=== PATIENT | female | born 1975 | race Caucasian/White ===

== ENCOUNTER 2018-05-14 13:47 | Inpatient (IN) | payer OTHER ==
[2018-05-14] MEDS ORDERED: SODIUM CHLORIDE 1,000 ML IV STA (14:01)
--- NOTE | 2018-05-14 14:01 | PDOC ---
Rapid Medical Evaluation Time Seen by Provider: 05/14/18 13:55 Medical Evaluation: Allergies Allergy/AdvReac Type Severity Reaction Status Date / Time Fish Containing Products Allergy Verified 10/28/17 15:35 Penicillins Allergy Verified 10/28/17 12:27 05/14/18 13:55 I have performed a brief in-person evaluation of this patient. The patient presents with a chief complaint of: periumbilical pain x 1 day. Now with palpitations. Wesley Bales Pertinent physical exam findings: +BS. mid abdominal tenderness. I have ordered the following: labs, urine, ekg The patient will proceed to the ED for further evaluation. Discharge Disposition - Diagnosis Abdominal pain, Palpitations - Referrals - Patient Instructions - Post Discharge Activity
[2018-05-14 14:59] LABS: BASO % 0.8 % (0-2.0); EOS % 0.1 % (0-4.5); HEMATOCRIT 36.6 % (32.4-45.2); HEMOGLOBIN 12.2 GM/dL (10.7-15.3); LYMPH % 13.5 % (8-40); MCH 30.8 pg (25.7-33.7); MCHC 33.4 g/dl (32.0-36.0); MEAN CELL VOLUME 92.1 fl (80-96); MEAN PLT VOLUME 8.4 fl (7.5-11.1); NEUT % 74.6 % (42.8-82.8); PLATELET COUNT 388 K/MM3 (134-434); RBC 3.98 M/mm3 (3.60-5.2); RDW 15.8 % (11.6-15.6); WHITE BLOOD COUNT 19.6 K/mm3 (4.0-10.0)
--- NOTE | 2018-05-14 15:26 | PDOC ---
History of Present Illness - General Chief Complaint: Palpitations Stated Complaint: PALPATION Time Seen by Provider: 05/14/18 13:55 - History of Present Illness Initial Comments: 05/14/18 15:22 43 yo F w with tachycardia, IDDM, diabetic coma, who p/w N/V, epigastria abdominal pain. Patient arrives from outside GI ( Dr. Chester Workman) for abdominal pain, tachycardia HR ~130's. Pt. has been experieincing multiple episodes of NBND emesis, and 3 loose watery stools x 24 hours. Also endorses worsening, crampy, epigastric abdominal pain, with no identifiable triggers or alleviators. Reports acute on chronic abdominal pain. H/o nml endosocpy and colonoscopy Dr. Maikel WOOD x 1 year ago. Denies chronic NSAID use. Reports ongoing history of unspecified tachycardia, with negative/unremarkable eval (2017) Stress test, LVEF 65%. Patient adherene t o Insulin regimen 6 U TID, and Levemir nightly. H/o diabetic coma, ( x 10 days) and ICU stay in [place] (2017- 03/30/2018). Patient denies MTZ, vision change, palpitations, cough, wheezing, orthopena, PND , leg swelling/pain, F,C, CP, SOB, urinary complaints, hematuria, BPR, constipation, lightheadedness, weakness, sensory changes. PMHx: as noted above. Denies h/o ACS/WA, PE/DVT. ROS: as noted SHx: Denies Allergies: PCN Past History - Past Medical History Allergies/Adverse Reactions: Allergies Allergy/AdvReac Type Severity Reaction Status Date / Time Fish Containing Products Allergy Verified 10/28/17 15:35 Penicillins Allergy Verified 10/28/17 12:27 COPD: No Diabetes: Yes GI Disorders: Yes (acid reflux) Hypercholesterolemia: Yes Other medical history: NEUROPATHY - Suicide/Smoking/Psychosocial Hx Smoking History: Never smoked Have you smoked in the past 12 months: No Information on smoking cessation initiated: No Hx Alcohol Use: No Drug/Substance Use Hx: No Review of Systems - Review of Systems Comments:: 05/14/18 15:23 GENERAL/CONSTITUTIONAL: No fever or chills. No weakness. HEAD, EYES, EARS, NOSE AND THROAT: No change in vision. No ear pain or discharge. No sore throat. CARDIOVASCULAR: No chest pain or shortness of breath RESPIRATORY: No cough, wheezing, or hemoptysis. GASTROINTESTINAL: + Abdominal pain, nausea, vomiting, diarrhea. No constipation. GENITOURINARY: No dysuria, frequency, or change in urination. MUSCULOSKELETAL: No joint or muscle swelling or pain. No neck or back pain. SKIN: No rash NEUROLOGIC: No headache, vertigo, loss of consciousness, or change in strength/ sensation. ENDOCRINE: No increased thirst. No abnormal weight change HEMATOLOGIC/LYMPHATIC: No anemia, easy bleeding, or history of blood clots. ALLERGIC/IMMUNOLOGIC: No hives or skin allergy. *Physical Exam - Vital Signs Last Vital Signs Temp Pulse Resp BP Pulse Ox 99.4 F 119 H 20 113/66 98 05/14/18 13:58 05/14/18 16:49 05/14/18 16:49 05/14/18 16:49 05/14/18 16:49 - Physical Exam Comments: 05/14/18 15:23 GENERAL: Awake, alert, and fully oriented, in no acute distress HEAD: No signs of trauma, normocephalic, atraumatic EYES: PERRLA, EOMI, sclera anicteric, conjunctiva clear ENT: Auricles normal inspection, hearing grossly normal, nares patent, oropharynx clear without exudates. Moist mucosa NECK: Normal ROM, supple, no lymphadenopathy, JVD, or masses LUNGS: No distress, speaks full sentences, clear to auscultation bilaterally HEART: Regular rate and rhythm, normal S1 and S2, no murmurs, rubs or gallops, peripheral pulses normal and equal bilaterally. ABDOMEN: + Epigastria abdominal pain. Soft, nontender, normoactive bowel sounds. No guarding, no rebound. No masses. Neg CVA ttp. EXTREMITIES : Normal inspection, Normal range of motion, no edema. No clubbing or cyanosis. NEUROLOGICAL: Cranial nerves II through XII grossly intact. Normal speech, normal gait, no focal sensorimotor deficits SKIN: Warm, Dry, normal turgor, no rashes or lesions noted Moderate Sedation - Procedure Monitoring Vital Signs: Procedure Monitoring Vital Signs Temperature 99.4 F 05/14/18 13:58 Pulse Rate 119 H 05/14/18 16:49 Respiratory Rate 20 05/14/18 16:49 Blood Pressure 113/66 05/14/18 16:49 O2 Sat by Pulse Oximetry (%) 98 05/14/18 16:49 ED Treatment Course - LABORATORY CBC & Chemistry Diagram: 05/14/18 14:40 05/14/18 14:40 - ADDITIONAL ORDERS Additional order review: Laboratory Results 05/14/18 05/14/18 05/14/18 15:15 15:15 14:42 VBG pH 7.40 POC VBG pCO2 40.1 L POC VBG pO2 33.8 VBG HCO3 24.6 VBG O2 Sat (John) 52.0 L VBG Base Excess 0.4 Sodium Potassium Chloride Carbon Dioxide Anion Gap BUN Creatinine Creat Clearance w eGFR Random Glucose Calcium Magnesium Total Bilirubin AST ALT Alkaline Phosphatase Creatine Kinase Troponin I Total Protein Albumin Lipase Urine Color Yellow Urine Appearance Cloudy Urine pH 6.0 Ur Specific [place] 1.017 Urine Protein 2+ H Urine Glucose (UA) 3+ H Urine Ketones 1+ H Urine Blood 1+ H Urine Nitrite Negative Urine Bilirubin Negative Urine Urobilinogen Negative Ur Leukocyte Esterase 3+ H Urine WBC (Auto) 832 Urine RBC (Auto) 6 Ur Epithelial Cells Rare Urine Bacteria Rare Hyaline Casts 6 Urine Mucus Rare Urine HCG, Qual Negative 05/14/18 05/14/18 14:40 14:40 VBG pH POC VBG pCO2 POC VBG pO2 VBG HCO3 VBG O2 Sat (John) VBG Base Excess Sodium 127 L Potassium 3.1 L Chloride 92 L Carbon Dioxide 25 Anion Gap 10 BUN 13 Creatinine 0.9 Creat Clearance w eGFR > 60 Random Glucose 453 H* Calcium 8.8 Magnesium 1.9 Total Bilirubin 1.5 H AST 14 L ALT 17 Alkaline Phosphatase 143 H Creatine Kinase 35 Troponin I < 0.02 Total Protein 6.9 Albumin 2.6 L Lipase 155 Urine Color Urine Appearance Urine pH Ur Specific [place] Urine Protein Urine Glucose (UA) Urine Ketones Urine Blood Urine Nitrite Urine Bilirubin Urine Urobilinogen Ur Leukocyte Esterase Urine WBC (Auto) Urine RBC (Auto) Ur Epithelial Cells Urine Bacteria Hyaline Casts Urine Mucus Urine HCG, Qual 05/14/18 14:40 RBC 3.98 MCV 92.1 MCHC 33.4 RDW 15.8 H MPV 8.4 Neutrophils % 74.6 Lymphocytes % 13.5 Monocytes % 11.0 H Eosinophils % 0.1 Basophils % 0.8 - RADIOLOGY Radiology Studies Ordered: Category Date Time Status CXRPORT [CHEST X-RAY PORTABLE*] [RAD] Stat Radiology 05/14/18 15:22 Completed GALLBLADDER US [US] Stat Ultrasound 05/14/18 16:21 Ordered - Medications Given in the ED: ED Medications Discontinued Medications Generic Name Dose Route Start Last Admin Trade Name Michael PRN Reason Stop Dose Admin Al Hydroxide/Mg Hydroxide 30 ml 05/14/18 16:23 05/14/18 16:47 Mylanta Oral Suspension - PO 05/14/18 16:24 30 ml ONCE ONE Administration Dicyclomine HCl 10 mg 05/14/18 16:23 05/14/18 16:47 Bentyl - PO 05/14/18 16:24 10 mg ONCE ONE Administration Sodium Chloride 1,000 mls @ 1,000 mls/hr 05/14/18 14:01 05/14/18 14:35 Normal Saline - IV 05/14/18 15:00 1,000 mls/hr ASDIR STA Administration Famotidine/Sodium Chloride 20 mg in 50 mls @ 100 mls/hr 05/14/18 16:23 16:47 Pepcid 20 Mg Premixed Ivpb - IVPB 05/14/18 16:52 100 mls/hr ONCE ONE Administration Ondansetron HCl 4 mg 05/14/18 16:23 05/14/18 16:47 Zofran Injection IVPB 05/14/18 16:24 4 mg ONCE ONE Administration Trimethoprim/Sulfamethoxazole 1 each 05/14/18 16:20 05/14/18 16:47 Bactrim Ds - PO 05/14/18 16:21 1 each ONCE ONE Administration Medical Decision Making - Medical Decision Making 05/14/18 15:2343 43 yo F with h/o , tachycardia, HTN, HLD, IDDM, diabetic coma, who p/w N/V, watery stools, epigastric abdominal pain x 24 hour. HR 129, vitals otherwise wnl , AF, A&Ox3. + Dry mucous membranes, epigastria ttp. Possible gastroenteritis, gastroparesis, gastritis, biliary dz. pancreatitis, PUD. Low risk PE based on Weils criteria. Will assess for cardiac dysarrythmias, hypoglycemia, electrolyte abnml, metabolic and toxic derangements, acid-base disturbances, infection. Will provide fluid resuscitation, anti-emetic control, and analogies. Ed Course: NS 2 L, Bentyl, Famotidine, NS, Zofran 05/14/18 16:21 EKG: Sinus tachycardia with absent GIOVANNY, STD. Normal interval duration and axis. Laboratory Tests 05/14/18 05/14/18 05/14/18 14:40 14:40 15:15 WBC 19.6 H Sodium 127 L Potassium 3.1 L Chloride 92 L Carbon Dioxide 25 Anion Gap 10 Random Glucose 453 H* Total Bilirubin 1.5 H AST 14 L Alkaline Phosphatase 143 H Albumin 2.6 L Urine Color Yellow Urine Appearance Cloudy Urine Protein 2+ H Urine Glucose (UA) 3+ H Urine Ketones 1+ H Urine Blood 1+ H Urine Nitrite Negative Ur Leukocyte Esterase 3+ H Urine WBC (Auto) 832 Urine RBC (Auto) 6 Urine HCG, Qual 05/14/18 15:15 WBC Sodium Potassium Chloride Carbon Dioxide Anion Gap Random Glucose Total Bilirubin AST Alkaline Phosphatase Albumin Urine Color Urine Appearance Urine Protein Urine Glucose (UA) Urine Ketones Urine Blood Urine Nitrite Ur Leukocyte Esterase Urine WBC (Auto) Urine RBC (Auto) Urine HCG, Qual Negative corrected sodium (133-135) K+CL, Kdur- Patient treated for UTI, Bactrim ( PCN allergy) RUQ U/S: R/o biliary obx. cholecystitis 05/14/18 16:[address] Moore. Admitted med/surg *DC/Admit/Observation/Transfer Diagnosis at time of Disposition: Hypokalemia, Dehydration, Hyperglycemia Abdominal pain Qualifiers: Abdominal location: epigastric Qualified Code(s): R10.13 - Epigastric pain UTI (urinary tract infection) Qualifiers: Urinary tract infection type: acute cystitis Hematuria presence: without hematuria Qualified Code(s): N30.00 - Acute cystitis without hematuria - Discharge Dispostion Condition at time of disposition: Stable Decision to Admit order: Yes Decision to Admit order Date/Time: Decision to Admit Order Category Date Time Status Decision to Admit to Hospital Routine Admission 05/14/18 16:58 Ordered - Referrals Referrals: Kike Morocho [Primary Care Provider] - - Patient Instructions Printed Discharge Instructions: DI for Abdominal Pain-Adult Additional Instructions: Please return to the emergency department with any new or worsening symptoms or concerns. Please follow up with your primary care physician within 72 hours. - Post Discharge Activity - Attestations Physician Attestion: 05/14/18 15:24 I attest to the information provided in this note.
[2018-05-14 15:43] LABS: ALBUMIN 2.6 g/dl (3.4-5.0); ALK PHOS 143 U/L (45-117); ANION GAP 10 MMOL/L (8-16); BILIRUBIN,TOTAL 1.5 mg/dL (0.2-1); BLOOD UREA NITROGEN 13 mg/dL (7-18); CALCIUM 8.8 mg/dL (8.5-10.1); CHLORIDE 92 mmol/L (98-107); CO2 25 mmol/L (21-32); CREATININE 0.9 mg/dL (0.55-1.3); LIPASE 155 U/L (73-393); POTASSIUM 3.1 mmol/L (3.5-5.1); SGOT/AST 14 U/L (15-37); SGPT/ALT 17 U/L (13-61); SODIUM 127 mmol/L (136-145); TOT PROT 6.9 g/dl (6.4-8.2)
--- NOTE | 2018-05-14 15:45 | PDOC ---
Attending Attestation - Resident Resident Name: Yassine Davila - ED Attending Attestation I have performed the following: I have examined & evaluated the patient, The case was reviewed & discussed with the resident, I agree w/resident's findings & plan, Exceptions are as noted - HPI HPI: 05/17/18 01:46 Ms Lr is a 43 yo F w with a h/o IDDM (c/b diabetic coma) who p/w N/V, epigastric abdominal pain. Patient presents with a complaint of abdominal pain noted to be tachycardiac. H/o nml endosocpy and colonoscopy Dr. Ko [facility] x 1 year ago. No recent travel No ill contacts No fevers or chills - Physicial Exam PE: 05/17/18 01:48 GENERAL: Awake, alert, and fully oriented, in no acute distress LUNGS: No distress, speaks full sentences, clear to auscultation bilaterally HEART: Regular rate and rhythm, normal S1 and S2, no murmurs, rubs or gallops, peripheral pulses normal and equal bilaterally. ABDOMEN: + Epigastria abdominal pain. Soft, nontender. No guarding, no rebound. EXTREMITIES : Normal inspection, Normal range of motion, no edema. NEUROLOGICAL: Cranial nerves II through XII grossly intact. Normal speech, normal gait, no focal sensorimotor deficits SKIN: Warm, Dry, normal turgor, no rashes or lesions noted - Medical Decision Making 43 yo F presenting with a complaint of nausea and vomiting Dd includes - gastritis, gastroenteritis, biliary colic, sbo 05/14/18 15:45 EKG: ST rate of 125 bpm, axis nml, intervals nml, no st elevation or depression , t waves upright 05/14/18 15:57 Laboratory Tests 05/14/18 05/14/18 05/14/18 14:40 14:40 15:15 WBC 19.6 H Hgb 12.2 Hct 36.6 Plt Count 388 Sodium 127 L Potassium 3.1 L Chloride 92 L Carbon Dioxide 25 BUN 13 Creatinine 0.9 Random Glucose 453 H* Lipase 155 Urine WBC (Auto) 832 Urine RBC (Auto) 6 Ur Epithelial Cells Rare Urine HCG, Qual 05/14/18 15:15 WBC Hgb Hct Plt Count Sodium Potassium Chloride Carbon Dioxide BUN Creatinine Random Glucose Lipase Urine WBC (Auto) Urine RBC (Auto) Ur Epithelial Cells Urine HCG, Qual Negative Pt with evidence of UTI Abx ordered Will plan to admit 05/17/18 01:50
[2018-05-14 15:46] LABS: URINE APPEARANCE CLOUDY; URINE BILIRUBIN NEGATIVE (<2.0 mg/dL); URINE COLOR YELLOW; URINE GLUCOSE (UA) 3+ (NEGATIVE); URINE KETONE 1+ (NEGATIVE); URINE LEUK ESTERASE 3+ (NEGATIVE); URINE NITRITE NEGATIVE (NEGATIVE); URINE PROTEIN 2+ (NEGATIVE); URINE UROBILINOGEN NEGATIVE mg/dL (0.2-1.0)
[2018-05-14 15:46] LABS: GLUCOSE,RANDOM 453 mg/dL (74-106)
[2018-05-14 15:51] LABS: EPI CELLS RARE /HPF (FEW); URINE BACTERIA RARE /hpf (NONE SEEN); URINE HYALINE CAST 6 /lpf; URINE MUCUS RARE
[2018-05-14 16:09] LABS: MAGNESIUM 1.9 mg/dL (1.8-2.4)
[2018-05-14] MEDS ORDERED: SODIUM CHLORIDE IV ONE (16:10)
[2018-05-14] MEDS ORDERED: SULFAMETHOXAZOLE/TRIMETHOPRIM 800MG/160MG D.S. TABLET PO ONE (16:20)
[2018-05-14] MEDS ORDERED: ONDANSETRON 4 MG/2 ML VIAL IVPB ONE (16:23)
[2018-05-14] MEDS ORDERED: MAG HYDROX/AL HYDROX/SIMETH 30 ML UNIT-DOSE CUP PO ONE (16:23)
[2018-05-14] MEDS ORDERED: DICYCLOMINE HCL 10 MG CAPSULE PO ONE (16:23)
[2018-05-14] MEDS ORDERED: FAMOTIDINE 20 MG/50 ML IVPB 20 MG/50 ML MG IVPB ONE ×2 (16:23→16:31)
[2018-05-14] MEDS ORDERED: DICYCLOMINE HCL 10 MG CAPSULE ONE (16:30)
[2018-05-14] MEDS ORDERED: MAG HYDROX/AL HYDROX/SIMETH 30 ML UNIT-DOSE CUP ONE (16:30)
[2018-05-14] MEDS ORDERED: SULFAMETHOXAZOLE/TRIMETHOPRIM 800MG/160MG D.S. TABLET ONE (16:30)
[2018-05-14] MEDS ORDERED: ONDANSETRON 4 MG/2 ML VIAL ONE (16:30)
[2018-05-14] MEDS ORDERED: POTASSIUM CHLORIDE ORAL LIQUID 20 MEQ/15 ML PO ONE (16:39)
[2018-05-14] MEDS ORDERED: POTASSIUM CHLORIDE TABS 20 MEQ TABLET.ER (FP) PO ONE (16:50)
[2018-05-14] MEDS ORDERED: KCL 10 MEQ IVPB 20 MEQ/200 ML INFUS.BAG IVPB ONE (16:51)
[2018-05-14 16:54] LABS: VENOUS PC02 40.1 mmHg (41-51); VENOUS PH 7.4 (7.31-7.41); VENOUS PO2 33.8 mmHg (30-40)
[2018-05-14] MEDS: KCL 10 MEQ IVPB 10 MEQ/100 ML INFUS.BAG IVPB SCH ×2 (17:03→18:26)
--- NOTE | 2018-05-14 17:05 | PN ---
Teaching Attending Note Name of Resident: Morgan Moore ATTENDING PHYSICIAN STATEMENT I saw and evaluated the patient. I reviewed the resident's note and discussed the case with the resident. I agree with the resident's findings and plan as documented. SUBJECTIVE: Patient is c/o having fever with tachycardia. OBJECTIVE: Vital Signs Temperature 99.4 F 05/14/18 13:58 Pulse Rate 119 H 05/14/18 16:49 Respiratory Rate 20 05/14/18 16:49 Blood Pressure 113/66 05/14/18 16:49 O2 Sat by Pulse Oximetry (%) 98 05/14/18 16:49 GENERAL: NAD, awake, alert, and fully oriented, diaphoretic HEENT: NC/AT, EOMi, [place], dry mucosa; NECK: No JVD LUNGS: CTA bilaterally anteriorly. No wheezes, and no crackles. No accessory muscle use. HEART: Tachycardic and regular rhythm, normal S1 and S2 without murmur appreciated ABDOMEN: Soft, ND, normoactive BS, diffuse tenderness with focus periumbilical area, no rebound, no guarding, negative Thomas's sign. MUSCULOSKELETAL: No CVA tenderness. EXTREMITIES: 2+ DP pulses, warm, well-perfused. No calf tenderness. No peripheral edema. L unstageable heel ulcer. NEUROLOGICAL: Nonfocal exam. Sensation intact symmetrically in lower extremities. Normal speech. Gait not observed PSYCHIATRIC: Cooperative. Good eye contact. Appropriate mood and affect. SKIN: Warm, dry, no rashes noted CBCD WBC 19.6 K/mm3 (4.0-10.0) H 05/14/18 14:40 RBC 3.98 M/mm3 (3.60-5.2) 05/14/18 14:40 Hgb 12.2 GM/dL (10.7-15.3) 05/14/18 14:40 Hct 36.6 % (32.4-45.2) 05/14/18 14:40 MCV 92.1 fl (80-96) 05/14/18 14:40 MCHC 33.4 g/dl (32.0-36.0) 05/14/18 14:40 RDW 15.8 % (11.6-15.6) H 05/14/18 14:40 Plt Count 388 K/MM3 (134-434) 05/14/18 14:40 MPV 8.4 fl (7.5-11.1) 05/14/18 14:40 CMP Sodium 127 mmol/L (136-145) L 05/14/18 14:40 Potassium 3.1 mmol/L (3.5-5.1) L 05/14/18 14:40 Chloride 92 mmol/L (98-107) L 05/14/18 14:40 Carbon Dioxide 25 mmol/L (21-32) 05/14/18 14:40 Anion Gap 10 MMOL/L (8-16) 05/14/18 14:40 BUN 13 mg/dL (7-18) 05/14/18 14:40 Creatinine 0.9 mg/dL (0.55-1.3) 05/14/18 14:40 Creat Clearance w eGFR > 60 (>60) 05/14/18 14:40 Random Glucose 453 mg/dL (74-106) H* 05/14/18 14:40 Calcium 8.8 mg/dL (8.5-10.1) 05/14/18 14:40 Total Bilirubin 1.5 mg/dL (0.2-1) H 05/14/18 14:40 AST 14 U/L (15-37) L 05/14/18 14:40 ALT 17 U/L (13-61) 05/14/18 14:40 Alkaline Phosphatase 143 U/L (45-117) H 05/14/18 14:40 Total Protein 6.9 g/dl (6.4-8.2) 05/14/18 14:40 Albumin 2.6 g/dl (3.4-5.0) L 05/14/18 14:40 CARDIAC ENZYMES Creatine Kinase 35 U/L (26-192) 05/14/18 14:40 Troponin I < 0.02 ng/ml (0.00-0.05) 05/14/18 14:40 Current Medications Generic Name Dose Route Start Last Admin Trade Name Arslanq PRN Reason Stop Dose Admin Sodium Chloride 1,755 mls @ 877.5 mls/hr 05/14/18 16:10 05/14/18 16:47 Normal Saline - 30 ml/kg infuse over 2 hr (1755 ml) 05/14/18 18:09 877.5 mls/hr IV Administration ONCE ONE Potassium Chloride 10 meq in 100 mls @ 100 mls/hr 05/14/18 16:45 05/14/18 17: 03 Potassium Chloride 10 Meq Premix Ivpb - IVPB 05/14/18 18:44 100 mls/hr Q60M SHO Administration Potassium Chloride/Sodium Chloride 20 meq in 1,000 mls @ 100 mls/hr 05/14/18 17:45 Ns+20 Meq Kcl - IV ASDIR SHO Trimethoprim/Sulfamethoxazole 1 each 05/15/18 10:00 Bactrim Ds - PO BID SHO Urine Test Results Urine Color Yellow 05/14/18 15:15 Urine Appearance Cloudy 05/14/18 15:15 Urine pH 6.0 (5.0-8.0) 05/14/18 15:15 Ur Specific [place] 1.017 (1.010-1.035) 05/14/18 15:15 Urine Protein 2+ (NEGATIVE) H 05/14/18 15:15 Urine Glucose (UA) 3+ (NEGATIVE) H 05/14/18 15:15 Urine Ketones 1+ (NEGATIVE) H 05/14/18 15:15 Urine Blood 1+ (NEGATIVE) H 05/14/18 15:15 Urine Nitrite Negative (NEGATIVE) 05/14/18 15:15 Urine Bilirubin Negative (<2.0 mg/dL) 05/14/18 15:15 Ur Leukocyte Esterase 3+ (NEGATIVE) H 05/14/18 15:15 Ur Epithelial Cells Rare /HPF (FEW) 05/14/18 15:15 Urine Bacteria Rare /hpf (NONE SEEN) 05/14/18 15:15 Urine Mucus Rare 05/14/18 15:15 ASSESSMENT AND PLAN: Patient is a 43yo Female with PMHx of IDDM, HTN, chronic back pain, with hx of being in coma for 14 days in [place] who presents today from Dr. Aleman's office after having tachycardia of 130bpm during his office visit. Pt reports going to see Dr. Aleman's office for evaluation of having hepatic steatosis for further evaluation and was found to have HR of 130's bpm and was send to ED. for further care. # Acute Sepsis possible due to UTI, IVF continue, Bld Cx and Ucx pending, # Acute UTI given a dose Bactrim DS , will give IV Levaquin and Flagyl , ID for consult . Patient is allergic to Penicillin # Hx of intubation due to coma # Hyperglycemia on IV F, sliding scale with coverage # Periumbical pain with no surgical hx of appendectomy will get abdominal CT with oral contrast to r/o appendicitis, will get also abdominal US. As per patient patient is allergic to IV dye. #Elevated BS on sliding scale with coverage # Acute hyponatremia/psuedohyponatremia due to elevated BS. #Acute hypokalemia replete the potassium # Escar on Left lower extremity heel ;doesn't look infected. DVT Px: SCD, heparin sq
[2018-05-14] MEDS ORDERED: INSULIN (NOVOLOG) ASPART 100 UNITS/ML 10ML VIAL SQ ONE (17:45)
--- NOTE | 2018-05-14 18:15 | HP ---
CHIEF COMPLAINT: Abdominal pain, nausea PCP: Not on staff Dining Host: None GI: Dr. Fatou Aleman HISTORY OF PRESENT ILLNESS: 43yo F with h/o IDDM, HTN, chronic back pain, who presents today from Dr. Aleman's office after having tachycardia of 130bpm during his office visit. Pt reports initially going to Dr. Aleman's office due to hepatic steatosis that needed to be investigated and while she was having her vitals performed her HR was within the 130's bpm. Pt reports this has been chronic. Her last stress was 10/2017 which was reportedly normal (EF 60-65%). In addition, pt has been having multiple episodes of NB/NB emesis without any clear exacerbating factors. Pt's last colonoscopy and endoscopy was per Dr. Ko 1 year ago with again reportedly normal results. In addition, pt reports having been intubated in a hospital stay in [place] during end of February 2018-March 2018 due to her glucose levels. She had an insulin pump at that time, however it had malfunctioned and she did not receive any insulin throughout that time. As a result she was hospitalized and admitted to the ICU. She has been taking Novolog with a sliding scale and using Levemir for her long acting daily. Currently pt has no nausea since she received Zofran in the ED. She reports having intermittent subjective fevers and chills with diffuse crampy abdominal pain without any radiation. She also endorses some back pain, however it is unchanged from her chronic pain. Pt's last BM was yesterday 3 episodes in total of loose watery stools without blood or mucus noted. She endorses subjective fevers alternating with chills alongside of polyuria but denies dysuria and hematuria. Pt denies headaches, lightheadedness, visual changes, shortness of breath, chest pain, palpitations, hematuria, dysuria, edema of lower extremities , parasthesias, weakness. Recent Travel: [place] in March 2018 PAST MEDICAL HISTORY: IDDM HTN Chronic back pain Hepatic steatosis PAST SURGICAL HISTORY: None reportedly Social History: Smoking: Denies Alcohol: Denies Drugs: Denies Independent in ADLs; normally walks with a gain due to chronic L heal ulcer Family History: Diabetes Allergies Fish Containing Products Allergy (Verified 10/28/17 15:35) --Shellfish - angioedema Penicillins Allergy (Verified 10/28/17 12:27) --Rash and angioedema Contrast material (reported by pt) --Rash/tongue angioedema HOME MEDICATIONS: Home Medications Medication Instructions Recorded Amitriptyline HCl [Elavil -] 10 mg PO DAILY 05/14/18 Aspirin [ASA -] 81 mg PO DAILY 05/14/18 Enalapril Maleate [Vasotec -] 2.5 mg PO DAILY 05/14/18 Pregabalin [Lyrica -] 200 mg PO BID 05/14/18 Simvastatin [Zocor] 80 mg PO HS 05/14/18 REVIEW OF SYSTEMS As per [facility] PHYSICAL EXAMINATION Vital Signs 05/14/18 05/14/18 05/14/18 13:58 16:49 17:16 Temperature 99.4 F Pulse Rate 129 H Pulse Rate [ 119 H Radial] Respiratory 20 20 Rate Blood Pressure 113/66 Blood Pressure 113/66 [Right Arm] O2 Sat by Pulse 99 98 98 Oximetry (%) GENERAL: NAD, awake, alert, and fully oriented, diaphoretic HEENT: NC/AT, EOMi, DAMEON, dry mucosa NECK: No JVD LUNGS: CTA bilaterally anteriorly. No wheezes, and no crackles. No accessory muscle use. HEART: Tachycardic and regular rhythm, normal S1 and S2 without murmur appreciated ABDOMEN: Soft, nondistended, normoactive BS, diffuse tenderness with focus periumbilically, no rebound, no guarding, negative Thomas's sign, no TTP at McBurney's, negative psoas sign, no hepatomegaly appreciated via palpation and percussion. MUSCULOSKELETAL: No CVA tenderness. EXTREMITIES: 2+ DP pulses, warm, well-perfused. No calf tenderness. No peripheral edema. L unstageable heel ulcer with slight tenderness to palpation without erythema/drainage/purulence NEUROLOGICAL: Nonfocal exam. Sensation intact symmetrically in lower extremities. Normal speech. Gait not observed PSYCHIATRIC: Cooperative. Good eye contact. Appropriate mood and affect. SKIN: Warm, dry, no rashes noted Laboratory Results 05/14/18 05/14/18 05/14/18 14:40 14:40 14:40 WBC 19.6 H RBC 3.98 Hgb 12.2 Hct 36.6 MCV 92.1 MCH 30.8 MCHC 33.4 RDW 15.8 H Plt Count 388 MPV 8.4 Absolute Neuts (auto) 14.7 H Neutrophils % 74.6 Lymphocytes % 13.5 Monocytes % 11.0 H Eosinophils % 0.1 Basophils % 0.8 Nucleated RBC % 0 VBG pH POC VBG pCO2 POC VBG pO2 VBG HCO3 VBG O2 Sat (John) VBG Base Excess Sodium 127 L Potassium 3.1 L Chloride 92 L Carbon Dioxide 25 Anion Gap 10 BUN 13 Creatinine 0.9 Creat Clearance w eGFR > 60 Random Glucose 453 H* Calcium 8.8 Magnesium 1.9 Total Bilirubin 1.5 H AST 14 L ALT 17 Alkaline Phosphatase 143 H Creatine Kinase 35 Troponin I < 0.02 Total Protein 6.9 Albumin 2.6 L Lipase 155 Urine Color Urine Appearance Urine pH Ur Specific [place] Urine Protein Urine Glucose (UA) Urine Ketones Urine Blood Urine Nitrite Urine Bilirubin Urine Urobilinogen Ur Leukocyte Esterase Urine WBC (Auto) Urine RBC (Auto) Ur Epithelial Cells Urine Bacteria Hyaline Casts Urine Mucus Urine HCG, Qual Acetone, Qual 05/14/18 05/14/18 05/14/18 14:42 15:15 15:15 WBC RBC Hgb Hct MCV MCH MCHC RDW Plt Count MPV Absolute Neuts (auto) Neutrophils % Lymphocytes % Monocytes % Eosinophils % Basophils % Nucleated RBC % VBG pH 7.40 POC VBG pCO2 40.1 L POC VBG pO2 33.8 VBG HCO3 24.6 VBG O2 Sat (John) 52.0 L VBG Base Excess 0.4 Sodium Potassium Chloride Carbon Dioxide Anion Gap BUN Creatinine Creat Clearance w eGFR Random Glucose Calcium Magnesium Total Bilirubin AST ALT Alkaline Phosphatase Creatine Kinase Troponin I Total Protein Albumin Lipase Urine Color Yellow Urine Appearance Cloudy Urine pH 6.0 Ur Specific [place] 1.017 Urine Protein 2+ H Urine Glucose (UA) 3+ H Urine Ketones 1+ H Urine Blood 1+ H Urine Nitrite Negative Urine Bilirubin Negative Urine Urobilinogen Negative Ur Leukocyte Esterase 3+ H Urine WBC (Auto) 832 Urine RBC (Auto) 6 Ur Epithelial Cells Rare Urine Bacteria Rare Hyaline Casts 6 Urine Mucus Rare Urine HCG, Qual Negative Acetone, Qual 05/14/18 15:54 WBC RBC Hgb Hct MCV MCH MCHC RDW Plt Count MPV Absolute Neuts (auto) Neutrophils % Lymphocytes % Monocytes % Eosinophils % Basophils % Nucleated RBC % VBG pH POC VBG pCO2 POC VBG pO2 VBG HCO3 VBG O2 Sat (John) VBG Base Excess Sodium Potassium Chloride Carbon Dioxide Anion Gap BUN Creatinine Creat Clearance w eGFR Random Glucose Calcium Magnesium Total Bilirubin AST ALT Alkaline Phosphatase Creatine Kinase Troponin I Total Protein Albumin Lipase Urine Color Urine Appearance Urine pH Ur Specific [place] Urine Protein Urine Glucose (UA) Urine Ketones Urine Blood Urine Nitrite Urine Bilirubin Urine Urobilinogen Ur Leukocyte Esterase Urine WBC (Auto) Urine RBC (Auto) Ur Epithelial Cells Urine Bacteria Hyaline Casts Urine Mucus Urine HCG, Qual Acetone, Qual Negative L ASSESSMENT/PLAN: Hyperglycemia Sepsis 2/2 to acute cystitis Hypokalemia Diffuse abdominal pain Leukocytosis Hepatic Steatosis Hyponatremia Unstageable L heel ulcer --Leukocytosis likely cofactorial between sepsis 2/2 to UTI and hyperglycemic leukomoid reaction --Levaquin 500mg IVPB (penicillin allergy) with addition of Flagyl for intra- abdominal coverage given abdominal pain --IVF - NS@100cc/hr + 20KCl --Blood cultures ordered; urine culture pending --ID consulted --Novolog 6U now; coverage with ISS and BGM ACHS overnight --Will reconcile Levemir at pt's pharmacy and will give appropriate dose in AM --RUQ US ordered for evaluation of GB given elevated TB and Alk phos --CT A/P with oral contrast ordered for assessment of abdominal pain/r/o appendicitis --Hypokalemia repletion noted in ED; rpt BMP for 8pm for assessment of glucose and K+ post-repletion FEN: Fluids: NS@100cc/hr + 20mEq KCl Electrolyte abnormalities: Hypokalemia (see above); correct Na for glucose ~ 133 (monitor; likely solute loss) Nutrition: Diabetic diet PPX: DVT - SCDs until CT results GI - Not indicated currently Dispo: Admit M/S as HR is chronic and sinus rhythm/exacerbated by dehydration Case discussed with Dr. Victoria Moore, DO - IM PGY-2 Visit type - Emergency Visit Emergency Visit: Yes ED Registration Date: 05/14/18 Care time: The patient presented to the Emergency Department on the above date and was hospitalized for further evaluation of their emergent condition. - New Patient This patient is new to me today: Yes Date on this admission: 05/14/18 - Critical Care Critical Care patient: No
[2018-05-14] MEDS ORDERED: INSULIN REGULAR HUMAN 100 UNITS/ML *VIAL ONE ×2 (18:42→18:44)
[2018-05-14] MEDS: SODIUM CHLORIDE 0.9%/KCL 20 MEQ/1,000 ML INFUS.BAG IV SCH (21:31)
[2018-05-14] MEDS: PREGABALIN 100 MG CAPSULE PO SCH (21:31)
[2018-05-14] MEDS: ATORVASTATIN CA 40 MG TABLET (FP) PO SCH (21:31)
[2018-05-14 23:05] LABS: ANION GAP 9 MMOL/L (8-16); BLOOD UREA NITROGEN 8 mg/dL (7-18); CALCIUM 7.8 mg/dL (8.5-10.1); CHLORIDE 105 mmol/L (98-107); CO2 22 mmol/L (21-32); CREATININE 0.7 mg/dL (0.55-1.3); GLUCOSE,RANDOM 251 mg/dL (74-106); POTASSIUM 3.4 mmol/L (3.5-5.1); SODIUM 136 mmol/L (136-145)
[2018-05-14] MEDS: INSULIN SLIDING SCALE (NOVOLOG) 1 VIAL SQ SCH (23:16)
[2018-05-15] MEDS ORDERED: ACETAMINOPHEN 1000 MG/100 ML VIAL (NON FORMULARY) IVPB ONE ×2 (03:25→14:59)
[2018-05-15] MEDS: INSULIN SLIDING SCALE (NOVOLOG) 1 VIAL SQ SCH ×4 (06:12→21:11)
[2018-05-15 08:18] LABS: HEMATOCRIT 33.2 % (32.4-45.2); MCH 30.6 pg (25.7-33.7); MEAN CELL VOLUME 92.6 fl (80-96); MEAN PLT VOLUME 8.1 fl (7.5-11.1); PLATELET COUNT 352 K/MM3 (134-434); RBC 3.58 M/mm3 (3.60-5.2); RDW 16.3 % (11.6-15.6); WHITE BLOOD COUNT 13.8 K/mm3 (4.0-10.0)
--- NOTE | 2018-05-15 08:35 | PN ---
Teaching Attending Note Name of Resident: Grayson De La Torre ATTENDING PHYSICIAN STATEMENT I saw and evaluated the patient. I reviewed the resident's note and discussed the case with the resident. I agree with the resident's findings and plan as documented. SUBJECTIVE: Patient is feeling better, no fever or chills. OBJECTIVE: Vital Signs Temperature 98.3 F 05/15/18 06:07 Pulse Rate 97 H 05/15/18 08:00 Respiratory Rate 20 05/15/18 08:00 Blood Pressure 96/65 05/15/18 08:00 O2 Sat by Pulse Oximetry (%) 98 05/15/18 05:00 GENERAL: NAD, awake, alert, and fully oriented HEENT: NC/AT, EOMi, [place], dry mucosa, NECK: No JVD LUNGS: CTA bilaterally anteriorly. No wheezes, and no crackles. HEART: RRR, normal S1 and S2 without murmur appreciated ABDOMEN: Soft, nondistended, normoactive BS. MUSCULOSKELETAL: No CVA tenderness. EXTREMITIES: 2+ DP pulses, warm, well-perfused. No calf tenderness. No peripheral edema. L unstageable heel ulcer NEUROLOGICAL: CN 2-12 grossly intact. symmetrically in lower extremities. Normal speech. Gait is stable PSYCHIATRIC: Cooperative. Good eye contact. Appropriate mood and affect. SKIN: Warm, dry, no rashes noted CBCD WBC 13.8 K/mm3 (4.0-10.0) H 05/15/18 06:00 RBC 3.58 M/mm3 (3.60-5.2) L 05/15/18 06:00 Hgb 11.0 GM/dL (10.7-15.3) 05/15/18 06:00 Hct 33.2 % (32.4-45.2) 05/15/18 06:00 MCV 92.6 fl (80-96) 05/15/18 06:00 MCHC 33.0 g/dl (32.0-36.0) 05/15/18 06:00 RDW 16.3 % (11.6-15.6) H 05/15/18 06:00 Plt Count 352 K/MM3 (134-434) 05/15/18 06:00 MPV 8.1 fl (7.5-11.1) 05/15/18 06:00 CMP Sodium 136 mmol/L (136-145) 05/14/18 21:30 Potassium 3.4 mmol/L (3.5-5.1) L 05/14/18 21:30 Chloride 105 mmol/L (98-107) 05/14/18 21:30 Carbon Dioxide 22 mmol/L (21-32) 05/14/18 21:30 Anion Gap 9 MMOL/L (8-16) 05/14/18 21:30 BUN 8 mg/dL (7-18) 05/14/18 21:30 Creatinine 0.7 mg/dL (0.55-1.3) 05/14/18 21:30 Creat Clearance w eGFR > 60 (>60) 05/14/18 21:30 Random Glucose 251 mg/dL (74-106) H 05/14/18 21:30 Calcium 7.8 mg/dL (8.5-10.1) L 05/14/18 21:30 Total Bilirubin 1.5 mg/dL (0.2-1) H 05/14/18 14:40 AST 14 U/L (15-37) L 05/14/18 14:40 ALT 17 U/L (13-61) 05/14/18 14:40 Alkaline Phosphatase 143 U/L (45-117) H 05/14/18 14:40 Total Protein 6.9 g/dl (6.4-8.2) 05/14/18 14:40 Albumin 2.6 g/dl (3.4-5.0) L 05/14/18 14:40 CARDIAC ENZYMES Creatine Kinase 35 U/L (26-192) 05/14/18 14:40 Troponin I < 0.02 ng/ml (0.00-0.05) 05/14/18 14:40 Current Medications Generic Name Dose Route Start Last Admin Trade Name Freq PRN Reason Stop Dose Admin Amitriptyline HCl 10 mg 05/15/18 10:00 Elavil - PO DAILY [facility] Aspirin 81 mg 05/15/18 10:00 Asa - PO DAILY [facility] Atorvastatin Calcium 40 mg 05/14/18 22:00 05/14/18 21:31 Lipitor - PO 40 mg HS SHO Administration Enalapril Maleate 2.5 mg 05/15/18 10:00 Vasotec - PO DAILY [facility] Potassium Chloride/Sodium Chloride 20 meq in 1,000 mls @ 100 mls/hr 05/14/18 17:45 05/14/18 21:31 Ns+20 Meq Kcl - IV 100 mls/hr ASDIR SHO Administration Metronidazole 500 mg in 100 mls @ 100 mls/hr 05/14/18 18:15 05/15/18 01:30 Flagyl 500mg Premixed Ivpb - IVPB 100 mls/hr Q8H-IV SHO Administration Insulin Aspart 1 vial 05/14/18 22:00 05/15/18 06:12 Novolog Vial Sliding Scale - SQ 1 units ACHS SHO Administration Protocol Pregabalin 200 mg 05/14/18 22:00 05/14/18 21:31 Lyrica - PO 200 mg BID SHO Administration Home Medications Medication Instructions Recorded Amitriptyline HCl [Elavil -] 10 mg PO DAILY 05/14/18 Aspirin [ASA -] 81 mg PO DAILY 05/14/18 Enalapril Maleate [Vasotec -] 2.5 mg PO DAILY 05/14/18 Insulin Detemir [Levemir Flextouch] 26 unit SQ HS 05/14/18 Insulin Lispro [Humalog] 6 unit SQ TID 05/14/18 Pregabalin [Lyrica -] 200 mg PO BID 05/14/18 Simvastatin [Zocor] 80 mg PO HS 05/14/18 Microbiology Urine Test Results Urine Color Yellow 05/14/18 15:15 Urine Appearance Cloudy 05/14/18 15:15 Urine pH 6.0 (5.0-8.0) 05/14/18 15:15 Ur Specific [place] 1.017 (1.010-1.035) 05/14/18 15:15 Urine Protein 2+ (NEGATIVE) H 05/14/18 15:15 Urine Glucose (UA) 3+ (NEGATIVE) H 05/14/18 15:15 Urine Ketones 1+ (NEGATIVE) H 05/14/18 15:15 Urine Blood 1+ (NEGATIVE) H 05/14/18 15:15 Urine Nitrite Negative (NEGATIVE) 05/14/18 15:15 Urine Bilirubin Negative (<2.0 mg/dL) 05/14/18 15:15 Ur Leukocyte Esterase 3+ (NEGATIVE) H 05/14/18 15:15 Ur Epithelial Cells Rare /HPF (FEW) 05/14/18 15:15 Urine Bacteria Rare /hpf (NONE SEEN) 05/14/18 15:15 Urine Mucus Rare 05/14/18 15:15 Microbiology 05/16/18 11:48 Blood - Peripheral Venous Blood Culture - Preliminary NO GROWTH OBTAINED AFTER 48 HOURS, INCUBATION TO CONTINUE FOR 3 DAYS. 05/16/18 12:08 Blood - Peripheral Venous Blood Culture - Preliminary NO GROWTH OBTAINED AFTER 48 HOURS, INCUBATION TO CONTINUE FOR 3 DAYS. 05/14/18 19:31 Blood - Peripheral Venous Blood Culture - Preliminary NO GROWTH OBTAINED AFTER 72 HOURS, INCUBATION TO CONTINUE FOR 2 DAYS. 05/14/18 19:31 Blood - Peripheral Venous Blood Culture - Final Escherichia Coli 05/14/18 14:20 Urine - Urine Clean Catch Urine Culture - Final Escherichia Coli Proteus Mirabilis ASSESSMENT AND PLAN: Patient is a 43yo Female with PMHx of IDDM, HTN, chronic back pain, with hx of being in coma for 14 days in [place] who presents from Dr. Aleman's office after having tachycardia of 130bpm during his office visit, and was send to ED. for further care. # Acute Sepsis possible due to UTI, IVF continue, Bld Cx pending organism # Acute UTI s/p Bactrim DS and Levaquin , on Azactam and Flagyl , ID on the case. Patient is allergic to Penicillin , given one dose of Gentamicin 320mg # Hx of intubation due to coma in [place] # Hyperglycemia s/p IVF, sliding scale with coverage continue # Acute hyponatremia/psuedohyponatremia improved post ivf #Acute hypokalemia will continue to replete the potassium # Escar on Left lower extremity heel ;doesn't look infected. DVT Px;
[2018-05-15 08:48] LABS: ALK PHOS 127 U/L (45-117); ANION GAP 5 MMOL/L (8-16); BILIRUBIN,TOTAL 0.9 mg/dL (0.2-1); BLOOD UREA NITROGEN 8 mg/dL (7-18); CALCIUM 8.1 mg/dL (8.5-10.1); CHLORIDE 109 mmol/L (98-107); CO2 24 mmol/L (21-32); CREATININE 0.6 mg/dL (0.55-1.3); GLUCOSE,RANDOM 183 mg/dL (74-106); MAGNESIUM 2.2 mg/dL (1.8-2.4); PHOSPHOROUS 2.9 mg/dL (2.5-4.9); POTASSIUM 3.8 mmol/L (3.5-5.1); SGOT/AST 12 U/L (15-37); SGPT/ALT 12 U/L (13-61); SODIUM 137 mmol/L (136-145); TOT PROT 5.8 g/dl (6.4-8.2)
[2018-05-15] MEDS: ENALAPRIL MALEATE 2.5 MG TABLET (FP) PO SCH (09:34)
[2018-05-15] MEDS ORDERED: PT OWN MED DRAWER 7, Y5N ONE (09:38)
[2018-05-15] MEDS: AMITRIPTYLINE HCL 10 MG TABLET (FP) PO SCH (09:44)
[2018-05-15] MEDS: PREGABALIN 100 MG CAPSULE PO SCH ×2 (09:44→21:08)
[2018-05-15] MEDS: ASPIRIN 81 MG CHEWABLE TABLETS PO SCH (09:44)
[2018-05-15] MEDS: SODIUM CHLORIDE 0.9%/KCL 20 MEQ/1,000 ML INFUS.BAG IV SCH ×2 (09:50→17:51)
[2018-05-15] MEDS ORDERED: SULFAMETHOXAZOLE/TRIMETHOPRIM 800MG/160MG D.S. TABLET PO SCH (10:00)
--- NOTE | 2018-05-15 10:52 | EKG ---
Test Reason : Blood Pressure : / mmHG Vent. Rate : 125 BPM Atrial Rate : 125 BPM P-R Int : 120 ms QRS Dur : 082 ms QT Int : 338 ms P-R-T Axes : 026 040 043 degrees QTc Int : 487 ms SINUS TACHYCARDIA OTHERWISE NORMAL ECG NO PREVIOUS ECGS AVAILABLE Confirmed by VANDANA BRENNAN MD ([id number]) on 05/15/2018 10:52:30 AM Referred By: Confirmed By:VANDANA BRENNAN MD
--- NOTE | 2018-05-15 10:58 | CON.CARD ---
Consult Consult Specialty:: Cardiology Reason for Consultation:: tachycardia - History of Present Illness History of Present Illness: 43yo F with h/o IDDM, HTN, chronic back pain, who presents today from Dr. Aleman's office after having tachycardia of 130bpm during his office visit. Pt reports initially going to Dr. Aleman's office due to hepatic steatosis that needed to be investigated and while she was having her vitals performed her HR was within the 130's bpm. Pt reports this has been chronic. Her last stress was 10/2017 which was reportedly normal (EF 60-65%). In addition, pt has been having multiple episodes of NB/NB emesis without any clear exacerbating factors. Pt's last colonoscopy and endoscopy was per Dr. Ko 1 year ago with again reportedly normal results. In addition, pt reports having been intubated in a hospital stay in [place] during end of February 2018-March 2018 due to her glucose levels. She had an insulin pump at that time, however it had malfunctioned and she did not receive any insulin throughout that time. As a result she was hospitalized and admitted to the ICU. She has been taking Novolog with a sliding scale and using Levemir for her long acting daily. PMH Diabetes Mellitus 2005 on insulin pump Diabetic neuropathy Hypertension Hyperlipidemia Low back pain Tachycardia - History Source History Provided By: Patient, Medical Record - Past Medical History ...: No - Alcohol/Substance Use Hx Alcohol Use: Yes - Smoking History Smoking history: Former smoker Have you smoked in the past 12 months: No Home Medications - Allergies Allergies/Adverse Reactions: Allergies Allergy/AdvReac Type Severity Reaction Status Date / Time Fish Containing Products Allergy Verified 10/28/17 15:35 Penicillins Allergy Verified 10/28/17 12:27 - Home Medications Home Medications: Ambulatory Orders Amitriptyline HCl [Elavil -] 10 mg PO DAILY 05/14/18 Aspirin [ASA -] 81 mg PO DAILY 05/14/18 Enalapril Maleate [Vasotec -] 2.5 mg PO DAILY 05/14/18 Insulin Detemir [Levemir Flextouch] 26 unit SQ HS 05/14/18 Insulin Lispro [Humalog] 6 unit SQ TID 05/14/18 Pregabalin [Lyrica -] 200 mg PO HS 05/14/18 Simvastatin [Zocor] 80 mg PO HS 05/14/18 Review of Systems - Review of Systems Constitutional: reports: No Symptoms Eyes: reports: No Symptoms HENT: reports: No Symptoms Neck: reports: No Symptoms Cardiovascular: reports: No Symptoms Respiratory: reports: No Symptoms Gastrointestinal: reports: No Symptoms Genitourinary: reports: No Symptoms Breasts: reports: No Symptoms Reported Musculoskeletal: reports: No Symptoms Integumentary: reports: No Symptoms Neurological: reports: No Symptoms Endocrine: reports: No Symptoms Hematology/Lymphatic: reports: No Symptoms Psychiatric: reports: No Symptoms Vital Signs: Vital Signs Temperature 98.3 F 05/15/18 06:07 Pulse Rate 97 H 05/15/18 08:00 Respiratory Rate 20 05/15/18 08:00 Blood Pressure 96/65 05/15/18 08:00 O2 Sat by Pulse Oximetry (%) 98 05/15/18 05:00 Constitutional: Yes: Well Nourished, No Distress, Calm Eyes: Yes: WNL, Conjunctiva Clear, EOM Intact HENT: Yes: WNL, Atraumatic, Normocephalic Neck: Yes: WNL, Supple, Trachea Midline Respiratory: Yes: WNL, Regular, CTA Bilaterally Gastrointestinal: Yes: WNL, Normal Bowel Sounds Renal/: Yes: WNL Cardiovascular: Yes: WNL, Regular Rate and Rhythm Musculoskeletal: Yes: WNL Extremities: Yes: WNL Integumentary: Yes: WNL Neurological: Yes: WNL, Alert, Oriented ...Motor Strength: WNL Psychiatric: Yes: WNL, Alert, Oriented - Other Data Labs, Other Data: CBC, BMP 05/15/18 06:00 05/15/18 06:00 Troponin, BNP 05/14/18 14:40 Troponin I < 0.02 Troponin, BNP 05/14/18 14:40 Troponin I < 0.02 Laboratory Tests 05/14/18 05/14/18 05/14/18 14:40 14:40 14:40 WBC 19.6 H RBC 3.98 Hgb 12.2 Hct 36.6 MCV 92.1 MCH 30.8 MCHC 33.4 RDW 15.8 H Plt Count 388 MPV 8.4 Absolute Neuts (auto) 14.7 H Neutrophils % 74.6 Lymphocytes % 13.5 Monocytes % 11.0 H Eosinophils % 0.1 Basophils % 0.8 Nucleated RBC % 0 VBG pH POC VBG pCO2 POC VBG pO2 VBG HCO3 VBG O2 Sat (John) VBG Base Excess Sodium 127 L Potassium 3.1 L Chloride 92 L Carbon Dioxide 25 Anion Gap 10 BUN 13 Creatinine 0.9 Creat Clearance w eGFR > 60 POC Glucometer Random Glucose 453 H* Calcium 8.8 Phosphorus Magnesium 1.9 Total Bilirubin 1.5 H AST 14 L ALT 17 Alkaline Phosphatase 143 H Creatine Kinase 35 Troponin I < 0.02 Total Protein 6.9 Albumin 2.6 L Lipase 155 Urine Color Urine Appearance Urine pH Ur Specific [place] Urine Protein Urine Glucose (UA) Urine Ketones Urine Blood Urine Nitrite Urine Bilirubin Urine Urobilinogen Ur Leukocyte Esterase Urine WBC (Auto) Urine RBC (Auto) Ur Epithelial Cells Urine Bacteria Hyaline Casts Urine Mucus Urine HCG, Qual Acetone, Qual 05/14/18 05/14/18 05/14/18 14:42 15:15 15:15 WBC RBC Hgb Hct MCV MCH MCHC RDW Plt Count MPV Absolute Neuts (auto) Neutrophils % Lymphocytes % Monocytes % Eosinophils % Basophils % Nucleated RBC % VBG pH 7.40 POC VBG pCO2 40.1 L POC VBG pO2 33.8 VBG HCO3 24.6 VBG O2 Sat (John) 52.0 L VBG Base Excess 0.4 Sodium Potassium Chloride Carbon Dioxide Anion Gap BUN Creatinine Creat Clearance w eGFR POC Glucometer Random Glucose Calcium Phosphorus Magnesium Total Bilirubin AST ALT Alkaline Phosphatase Creatine Kinase Troponin I Total Protein Albumin Lipase Urine Color Yellow Urine Appearance Cloudy Urine pH 6.0 Ur Specific [place] 1.017 Urine Protein 2+ H Urine Glucose (UA) 3+ H Urine Ketones 1+ H Urine Blood 1+ H Urine Nitrite Negative Urine Bilirubin Negative Urine Urobilinogen Negative Ur Leukocyte Esterase 3+ H Urine WBC (Auto) 832 Urine RBC (Auto) 6 Ur Epithelial Cells Rare Urine Bacteria Rare Hyaline Casts 6 Urine Mucus Rare Urine HCG, Qual Negative Acetone, Qual 05/14/18 05/14/18 05/14/18 15:54 21:30 23:15 WBC RBC Hgb Hct MCV MCH MCHC RDW Plt Count MPV Absolute Neuts (auto) Neutrophils % Lymphocytes % Monocytes % Eosinophils % Basophils % Nucleated RBC % VBG pH POC VBG pCO2 POC VBG pO2 VBG HCO3 VBG O2 Sat (John) VBG Base Excess Sodium 136 Potassium 3.4 L Chloride 105 Carbon Dioxide 22 Anion Gap 9 BUN 8 Creatinine 0.7 Creat Clearance w eGFR > 60 POC Glucometer 269 Random Glucose 251 H Calcium 7.8 L Phosphorus Magnesium Total Bilirubin AST ALT Alkaline Phosphatase Creatine Kinase Troponin I Total Protein Albumin Lipase Urine Color Urine Appearance Urine pH Ur Specific [place] Urine Protein Urine Glucose (UA) Urine Ketones Urine Blood Urine Nitrite Urine Bilirubin Urine Urobilinogen Ur Leukocyte Esterase Urine WBC (Auto) Urine RBC (Auto) Ur Epithelial Cells Urine Bacteria Hyaline Casts Urine Mucus Urine HCG, Qual Acetone, Qual Negative L 05/15/18 05/15/18 05/15/18 06:00 06:00 06:09 WBC 13.8 H RBC 3.58 L Hgb 11.0 Hct 33.2 MCV 92.6 MCH 30.6 MCHC 33.0 RDW 16.3 H Plt Count 352 MPV 8.1 Absolute Neuts (auto) Neutrophils % Lymphocytes % Monocytes % Eosinophils % Basophils % Nucleated RBC % VBG pH POC VBG pCO2 POC VBG pO2 VBG HCO3 VBG O2 Sat (John) VBG Base Excess Sodium 137 Potassium 3.8 Chloride 109 H Carbon Dioxide 24 Anion Gap 5 L BUN 8 Creatinine 0.6 Creat Clearance w eGFR > 60 POC Glucometer 191 Random Glucose 183 H Calcium 8.1 L Phosphorus 2.9 Magnesium 2.2 Total Bilirubin 0.9 AST 12 L ALT 12 L Alkaline Phosphatase 127 H Creatine Kinase Troponin I Total Protein 5.8 L Albumin 2.0 L Lipase Urine Color Urine Appearance Urine pH Ur Specific [place] Urine Protein Urine Glucose (UA) Urine Ketones Urine Blood Urine Nitrite Urine Bilirubin Urine Urobilinogen Ur Leukocyte Esterase Urine WBC (Auto) Urine RBC (Auto) Ur Epithelial Cells Urine Bacteria Hyaline Casts Urine Mucus Urine HCG, Qual Acetone, Qual Imaging - Results Chest X-ray: Image Reviewed (wnl) EKG: Image Reviewed (s tachycardia) Problem List - Problems (1) Abdominal pain Code(s): R10.9 - UNSPECIFIED ABDOMINAL PAIN Qualifiers: Abdominal location: epigastric Qualified Code(s): R10.13 - Epigastric pain (2) Dehydration Code(s): E86.0 - DEHYDRATION (3) Hyperglycemia Code(s): R73.9 - HYPERGLYCEMIA, UNSPECIFIED (4) Hypokalemia Code(s): E87.6 - HYPOKALEMIA (5) UTI (urinary tract infection) Code(s): N39.0 - URINARY TRACT INFECTION, SITE NOT SPECIFIED Qualifiers: Urinary tract infection type: acute cystitis Hematuria presence: without hematuria Qualified Code(s): N30.00 - Acute cystitis without hematuria Assessment/Plan Imp; Sepsis r/o UTI Diabetes Mellitus 2005 on insulin pump Diabetic neuropathy Hypertension Hyperlipidemia Low back pain Tachycardia Liver steatosis Plan Cardiac morrison stable cont abx and rx as per medicine f/u ekg
[2018-05-15] MEDS ORDERED: INSULIN (NOVOLOG) ASPART 100 UNITS/ML 10ML VIAL ONE (12:15)
--- NOTE | 2018-05-15 15:06 | PN ---
Physical Exam: SUBJECTIVE: Patient seen and examined at bedside. Fever 101.2 overnight. at bedside. OBJECTIVE: Vital Signs Period Temp Pulse Resp BP Sys/Garcia Pulse Ox Last 24 Hr 98.3 F-101.2 F 95-131 20-24 86-135/47-73 94-98 GENERAL: AAox3 NAD HEAD: Normal with no signs of trauma. EYES: EOMI Sclera Clear ENT: MMM NECK: Trachea midline, full range of motion, supple. LUNGS: CTAB HEART: RRR nl s1s2. ABDOMEN: Periumbilical tenderness. EXTREMITIES: No CCE NEUROLOGICAL: Cranial nerves II through XII grossly intact. PSYCH: Normal mood, normal affect. SKIN: Warm, dry, normal turgor, no rashes or lesions noted Laboratory Results - last 24 hr 05/14/18 05/14/18 05/14/18 14:40 14:40 14:42 WBC RBC Hgb Hct MCV MCH MCHC RDW Plt Count MPV VBG pH 7.40 POC VBG pCO2 40.1 L POC VBG pO2 33.8 VBG HCO3 24.6 VBG O2 Sat (John) 52.0 L VBG Base Excess 0.4 Sodium 127 L Potassium 3.1 L Chloride 92 L Carbon Dioxide 25 Anion Gap 10 BUN 13 Creatinine 0.9 Creat Clearance w eGFR > 60 POC Glucometer Random Glucose 453 H* Calcium 8.8 Phosphorus Magnesium 1.9 Total Bilirubin 1.5 H AST 14 L ALT 17 Alkaline Phosphatase 143 H Creatine Kinase 35 Troponin I < 0.02 Total Protein 6.9 Albumin 2.6 L Lipase 155 Urine Color Urine Appearance Urine pH Ur Specific [place] Urine Protein Urine Glucose (UA) Urine Ketones Urine Blood Urine Nitrite Urine Bilirubin Urine Urobilinogen Ur Leukocyte Esterase Urine WBC (Auto) Urine RBC (Auto) Ur Epithelial Cells Urine Bacteria Hyaline Casts Urine Mucus Urine HCG, Qual Acetone, Qual 05/14/18 05/14/18 05/14/18 15:15 15:15 15:54 WBC RBC Hgb Hct MCV MCH MCHC RDW Plt Count MPV VBG pH POC VBG pCO2 POC VBG pO2 VBG HCO3 VBG O2 Sat (John) VBG Base Excess Sodium Potassium Chloride Carbon Dioxide Anion Gap BUN Creatinine Creat Clearance w eGFR POC Glucometer Random Glucose Calcium Phosphorus Magnesium Total Bilirubin AST ALT Alkaline Phosphatase Creatine Kinase Troponin I Total Protein Albumin Lipase Urine Color Yellow Urine Appearance Cloudy Urine pH 6.0 Ur Specific [place] 1.017 Urine Protein 2+ H Urine Glucose (UA) 3+ H Urine Ketones 1+ H Urine Blood 1+ H Urine Nitrite Negative Urine Bilirubin Negative Urine Urobilinogen Negative Ur Leukocyte Esterase 3+ H Urine WBC (Auto) 832 Urine RBC (Auto) 6 Ur Epithelial Cells Rare Urine Bacteria Rare Hyaline Casts 6 Urine Mucus Rare Urine HCG, Qual Negative Acetone, Qual Negative L 05/14/18 05/14/18 05/15/18 21:30 23:15 06:00 WBC 13.8 H RBC 3.58 L Hgb 11.0 Hct 33.2 MCV 92.6 MCH 30.6 MCHC 33.0 RDW 16.3 H Plt Count 352 MPV 8.1 VBG pH POC VBG pCO2 POC VBG pO2 VBG HCO3 VBG O2 Sat (John) VBG Base Excess Sodium 136 Potassium 3.4 L Chloride 105 Carbon Dioxide 22 Anion Gap 9 BUN 8 Creatinine 0.7 Creat Clearance w eGFR > 60 POC Glucometer 269 Random Glucose 251 H Calcium 7.8 L Phosphorus Magnesium Total Bilirubin AST ALT Alkaline Phosphatase Creatine Kinase Troponin I Total Protein Albumin Lipase Urine Color Urine Appearance Urine pH Ur Specific [place] Urine Protein Urine Glucose (UA) Urine Ketones Urine Blood Urine Nitrite Urine Bilirubin Urine Urobilinogen Ur Leukocyte Esterase Urine WBC (Auto) Urine RBC (Auto) Ur Epithelial Cells Urine Bacteria Hyaline Casts Urine Mucus Urine HCG, Qual Acetone, Qual 05/15/18 05/15/18 05/15/18 06:00 06:09 12:12 WBC RBC Hgb Hct MCV MCH MCHC RDW Plt Count MPV VBG pH POC VBG pCO2 POC VBG pO2 VBG HCO3 VBG O2 Sat (John) VBG Base Excess Sodium 137 Potassium 3.8 Chloride 109 H Carbon Dioxide 24 Anion Gap 5 L BUN 8 Creatinine 0.6 Creat Clearance w eGFR > 60 POC Glucometer 191 362 Random Glucose 183 H Calcium 8.1 L Phosphorus 2.9 Magnesium 2.2 Total Bilirubin 0.9 AST 12 L ALT 12 L Alkaline Phosphatase 127 H Creatine Kinase Troponin I Total Protein 5.8 L Albumin 2.0 L Lipase Urine Color Urine Appearance Urine pH Ur Specific [place] Urine Protein Urine Glucose (UA) Urine Ketones Urine Blood Urine Nitrite Urine Bilirubin Urine Urobilinogen Ur Leukocyte Esterase Urine WBC (Auto) Urine RBC (Auto) Ur Epithelial Cells Urine Bacteria Hyaline Casts Urine Mucus Urine HCG, Qual Acetone, Qual Active Medications Generic Name Dose Route Start Last Admin Trade Name Freq PRN Reason Stop Dose Admin Amitriptyline HCl 10 mg 05/15/18 10:00 05/15/18 09:44 Elavil - PO Not Given DAILY SHO Aspirin 81 mg 05/15/18 10:00 05/15/18 09:44 Asa - PO Not Given DAILY SHO Atorvastatin Calcium 40 mg 05/14/18 22:00 05/14/18 21:31 Lipitor - PO 40 mg HS SHO Administration Enalapril Maleate 2.5 mg 05/15/18 10:00 05/15/18 09:34 Vasotec - PO Not Given DAILY SHO Potassium Chloride/Sodium Chloride 20 meq in 1,000 mls @ 100 mls/hr 05/14/18 17:45 05/15/18 09:50 Ns+20 Meq Kcl - IV 100 mls/hr ASDIR SHO Administration Metronidazole 500 mg in 100 mls @ 100 mls/hr 05/14/18 18:15 05/15/18 09:44 Flagyl 500mg Premixed Ivpb - IVPB 100 mls/hr Q8H-IV SHO Administration Insulin Aspart 1 vial 05/14/18 22:00 05/15/18 12:17 Novolog Vial Sliding Scale - SQ 5 units ACHS SHO Administration Protocol Pregabalin 200 mg 05/15/18 22:00 Lyrica - PO HS SHO ASSESSMENT/PLAN: 43yo F with h/o IDDM, HTN, chronic back pain, who presents today from Dr. Aleman's office after having tachycardia of 130bpm during his office visit. #Diffuse abdominal pain 2/2 Acute Diverticulitis CTAP---> Acute Diverticulitis of distal descending colon Pt on Levaquin and Flagyl and Gentamycin ID on board Urine Culture pending Blood culture + 1 bottle--> gram neg bacilli. #UTI leukocyte esterase 3+ WBC's 832 Urine Culture pending On ABx coverage #IDDM Insulin Sliding scale Will add levemir if BGMs remain elevated #FEN: Fluids: NS@100cc/hr + 20mEq KCl Monitor electrolytes Diabetic diet #PPX: DVT - SCDs #Dispo: Med-Surg Visit type - Emergency Visit Emergency Visit: Yes ED Registration Date: 05/14/18 Care time: The patient presented to the Emergency Department on the above date and was hospitalized for further evaluation of their emergent condition. - New Patient This patient is new to me today: Yes Date on this admission: 05/15/18 - Critical Care Critical Care patient: No - Discharge Referral Referred to [facility] Med P.C.: No
--- NOTE | 2018-05-15 18:00 | PN ---
Progress Note (short form) - Note Progress Note: ID consult dictated imp/reccd 43 yo female admitted with chills, sweats, abdominal pain and diarrhea nonbloody one episode of vomiting no dysuria febrile to 101 now afebrile abdominal pain improved gram negative bacteremia diverticulitis UTI currently on levaquin/flagyl feels well now will add gentamicin continue IVF f/u cultures Problem List - Problems (1) Gram-negative bacteremia Code(s): R78.81 - BACTEREMIA (2) Diverticulitis Code(s): K57.92 - DVTRCLI OF INTEST, PART UNSP, W/O PERF OR ABSCESS W/O BLEED (3) UTI (urinary tract infection) Code(s): N39.0 - URINARY TRACT INFECTION, SITE NOT SPECIFIED Qualifiers: Urinary tract infection type: acute cystitis Hematuria presence: without hematuria Qualified Code(s): N30.00 - Acute cystitis without hematuria (4) Diabetes Code(s): E11.9 - TYPE 2 DIABETES MELLITUS WITHOUT COMPLICATIONS (5) Penicillin allergy Code(s): Z88.0 - ALLERGY STATUS TO PENICILLIN
[2018-05-15] MEDS ORDERED: GENTAMICIN INJECTION 120 MG in SODIUM CHLORIDE 100 ML IVPB ONE (18:17)
--- NOTE | 2018-05-15 18:27 | CONS ---
DATE OF CONSULTATION: DATE OF DICTATION: 05/15/2018 INFECTIOUS DISEASE CONSULTATION REQUESTING PHYSICIAN: Ryan Kessler M.D. CONSULTING PHYSICIAN: Therese Mason M.D. HISTORY OF PRESENT ILLNESS: This is a 43-year-old woman admitted from home with a history of abdominal pain and tachycardia. She reports that since the weekend she has felt feverish. She has had chills and sweats. She had yesterday, she developed some abdominal pain accompanied by diarrhea. She had 3 episodes of nonbloody diarrhea at home, one episode of vomiting. She had 3 more episodes of diarrhea in the ER and still suspect to date this is ongoing . She is a diabetic as well. Her recent travel is to [place]. PAST MEDICAL HISTORY: Notable for diabetes, hypertension, back pain, and fatty liver. There is no history of any surgery. She went on vacation to [place] and developed hyperglycemic coma, she was in the hospital from March 03 to March 30 in [place], after which she needed rehabilitation. She only returned to [place] on April 29. SOCIAL HISTORY: There is no history of cigarette, alcohol, or substance use. She was originally from [place]. FAMILY HISTORY: Diabetes . ALLERGIES: SHELLFISH, PENICILLIN which gives her rash and facial swelling, and CONTRAST MEDIA. MEDICATION: At home include amitriptyline, aspirin, Vasotec, Lyrica, and Zocor. REVIEW OF SYSTEMS: She denies dysuria, she denies cough or shortness of breath. PHYSICAL EXAMINATION: GENERAL: She is awake and alert. She is quite comfortable right now. She is eating clears, and she reports her abdominal pain has improved. VITAL SIGNS: Temperature is 98.6, pulse 95, blood pressure 97/64, respiratory rate 20, she is saturating 98% on room air. HEENT: Normocephalic. Eyes are anicteric. NECK: Supple. LUNGS: Clear to auscultation. HEART: Regular rate and rhythm. ABDOMEN: Soft, currently nontender. She just received some IV Tylenol and she has good bowel sounds. EXTREMITIES: Without edema. LABORATORY: Notable for a white count on admission of 19.6 yesterday, this morning is 13.8, hemoglobin of 11, platelets of 352. BUN and creatinine are 8 and 0.8. Glucose of 183, LFTs are normal. Urinalysis is 832 white cells, 3+ leukocytes. Her blood cultures, 1 of 4 bottles are growing gram-negative bacilli. Urine culture is pending. CAT scan of the abdomen and pelvis is done and is notable for acute diverticulitis of the distal ascending colon. She had a sonogram done that was normal of her abdomen, it showed; she had a chest x-ray done as well, that was normal. IMPRESSION: In summary, this is a 43-year-old woman admitted with chills, sweats, abdominal pain, and diarrhea nonbloody, one episode of vomiting. No dysuria, who now has gram-negative bacteremia and diverticulitis urinary tract infection, currently on Levaquin and Flagyl. She feels well, is getting intravenous fluids. Would add gentamicin, given her PENICILLIN allergy until the blood cultures further sensitivities are available. In the emergency room, she received Bactrim and Levaquin as well as Flagyl, and she appears to be improving. Will continue gentamicin until sensitivities are available. Jose Francisco [id number]
[2018-05-15] MEDS: ATORVASTATIN CA 40 MG TABLET (FP) PO SCH (21:08)
[2018-05-16] MEDS: INSULIN SLIDING SCALE (NOVOLOG) 1 VIAL SQ SCH ×3 (06:00→16:56)
[2018-05-16 07:45] LABS: HEMATOCRIT 32.5 % (32.4-45.2); HEMOGLOBIN 10.7 GM/dL (10.7-15.3); MCH 30.5 pg (25.7-33.7); MEAN CELL VOLUME 92.3 fl (80-96); MEAN PLT VOLUME 8.4 fl (7.5-11.1); PLATELET COUNT 410 K/MM3 (134-434); RBC 3.52 M/mm3 (3.60-5.2); RDW 16.1 % (11.6-15.6); WHITE BLOOD COUNT 13.2 K/mm3 (4.0-10.0)
[2018-05-16 08:26] LABS: ANION GAP 10 MMOL/L (8-16); BLOOD UREA NITROGEN 3 mg/dL (7-18); CALCIUM 8.2 mg/dL (8.5-10.1); CHLORIDE 108 mmol/L (98-107); CO2 20 mmol/L (21-32); CREATININE 0.6 mg/dL (0.55-1.3); GLUCOSE,RANDOM 204 mg/dL (74-106); MAGNESIUM 1.8 mg/dL (1.8-2.4); PHOSPHOROUS 2.7 mg/dL (2.5-4.9); POTASSIUM 3.1 mmol/L (3.5-5.1); SODIUM 137 mmol/L (136-145)
[2018-05-16] MEDS ORDERED: MAG HYDROX/AL HYDROX/SIMETH 30 ML UNIT-DOSE CUP PO PRN (08:33)
[2018-05-16] MEDS ORDERED: POTASSIUM CHLORIDE TABS 20 MEQ TABLET.ER (FP) PO ONE (09:30)
[2018-05-16] MEDS ORDERED: PT OWN MED DRAWER 7, Y5N ONE (09:59)
[2018-05-16] MEDS: ENALAPRIL MALEATE 2.5 MG TABLET (FP) PO SCH (10:02)
[2018-05-16] MEDS: ASPIRIN 81 MG CHEWABLE TABLETS PO SCH (10:02)
[2018-05-16] MEDS: AMITRIPTYLINE HCL 10 MG TABLET (FP) PO SCH (10:02)
[2018-05-16] MEDS ORDERED: INSULIN (NOVOLOG) ASPART 100 UNITS/ML 10ML VIAL ONE (11:15)
--- NOTE | 2018-05-16 12:38 | PN ---
Progress Note, Physician History of Present Illness: 43yo F with h/o IDDM, HTN, chronic back pain, who presents today from Dr. Aleman's office after having tachycardia of 130bpm during his office visit. Pt reports initially going to Dr. Aleman's office due to hepatic steatosis that needed to be investigated and while she was having her vitals performed her HR was within the 130's bpm. Pt reports this has been chronic. Her last stress was 10/2017 which was reportedly normal (EF 60-65%). In addition, pt has been having multiple episodes of NB/NB emesis without any clear exacerbating factors. Pt's last colonoscopy and endoscopy was per Dr. Ko 1 year ago with again reportedly normal results. In addition, pt reports having been intubated in a hospital stay in [place] during end of February 2018-March 2018 due to her glucose levels. She had an insulin pump at that time, however it had malfunctioned and she did not receive any insulin throughout that time. As a result she was hospitalized and admitted to the ICU. She has been taking Novolog with a sliding scale and using Levemir for her long acting daily. PMH Diabetes Mellitus 2005 on insulin pump Diabetic neuropathy Hypertension Hyperlipidemia Low back pain Tachycardia - Current Medication List Current Medications: Active Medications Al Hydroxide/Mg Hydroxide (Mylanta Oral Suspension -) 30 ml PO Q6H PRN PRN Reason: DYSPEPSIA Last Admin: 05/16/18 10:03 Dose: 30 ml Amitriptyline HCl (Elavil -) 10 mg PO DAILY [facility] Last Admin: 05/16/18 10:02 Dose: 10 mg Aspirin (Asa -) 81 mg PO DAILY [facility] Last Admin: 05/16/18 10:02 Dose: 81 mg Atorvastatin Calcium (Lipitor -) 40 mg PO HS [facility] Last Admin: 05/15/18 21:08 Dose: 40 mg Enalapril Maleate (Vasotec -) 2.5 mg PO DAILY [facility] Last Admin: 05/16/18 10:02 Dose: 2.5 mg Potassium Chloride/Sodium Chloride (Ns+20 Meq Kcl -) 20 meq in 1,000 mls @ 100 mls/hr IV ASDIR [facility] Last Admin: 05/15/18 17:51 Dose: Not Given Metronidazole (Flagyl 500mg Premixed Ivpb -) 500 mg in 100 mls @ 100 mls/hr IVPB Q8H-IV [facility]O Last Admin: 05/16/18 10:03 Dose: 100 mls/hr Levofloxacin (Levaquin 500 Mg Premixed Ivpb -) 500 mg in 100 mls @ 100 mls/hr IVPB DAILY [facility]; Protocol Last Admin: 05/16/18 11:19 Dose: 100 mls/hr Insulin Aspart (Novolog Vial Sliding Scale -) 1 vial SQ ACHS SHO; Protocol Last Admin: 05/16/18 11:17 Dose: 3 units Pregabalin (Lyrica -) 200 mg PO HS [facility] Last Admin: 05/15/18 21:08 Dose: 200 mg - Objective Vital Signs: Vital Signs Temperature 98.4 F 05/16/18 10:00 Pulse Rate 97 H 05/16/18 10:00 Respiratory Rate 20 05/16/18 10:00 Blood Pressure 122/71 05/16/18 10:00 O2 Sat by Pulse Oximetry (%) 98 05/15/18 09:00 Eyes: Yes: WNL, Conjunctiva Clear, EOM Intact HENT: Yes: WNL, Atraumatic, Normocephalic Neck: Yes: WNL, Supple, Trachea Midline Cardiovascular: Yes: WNL, Regular Rate and Rhythm Respiratory: Yes: WNL, Regular, CTA Bilaterally Gastrointestinal: Yes: WNL, Normal Bowel Sounds Genitourinary: Yes: WNL Musculoskeletal: Yes: WNL Extremities: Yes: WNL Edema: No Integumentary: Yes: WNL Neurological: Yes: WNL, Alert, Oriented ...Motor Strength: WNL Psychiatric: Yes: WNL Labs: CBC, BMP 05/16/18 07:00 05/16/18 07:00 Problem List - Problems (1) Abdominal pain Code(s): R10.9 - UNSPECIFIED ABDOMINAL PAIN Qualifiers: Abdominal location: epigastric Qualified Code(s): R10.13 - Epigastric pain (2) Dehydration Code(s): E86.0 - DEHYDRATION (3) Hyperglycemia Code(s): R73.9 - HYPERGLYCEMIA, UNSPECIFIED (4) Hypokalemia Code(s): E87.6 - HYPOKALEMIA (5) UTI (urinary tract infection) Code(s): N39.0 - URINARY TRACT INFECTION, SITE NOT SPECIFIED Qualifiers: Urinary tract infection type: acute cystitis Hematuria presence: without hematuria Qualified Code(s): N30.00 - Acute cystitis without hematuria Assessment/Plan Imp; Sepsis r/o UTI Diabetes Mellitus 2005 on insulin pump Diabetic neuropathy Hypertension Hyperlipidemia Low back pain Tachycardia Liver steatosis Plan Cardiac morrison stable cont abx and rx as per medicine f/u ekg
--- NOTE | 2018-05-16 14:33 | PN ---
Physical Exam: SUBJECTIVE: Patient seen and examined at bedside. No acute events overnight. OBJECTIVE: Vital Signs Period Temp Pulse Resp BP Sys/Garcia Pulse Ox Last 24 Hr 98.1 F-98.5 F 92-122 18-22 104-152/66-89 97 GENERAL: No acute distress HEAD: Normal with no signs of trauma. EYES: EOMI Sclera Clear ENT: MMM NECK: Trachea midline, full range of motion, supple. LUNGS: CTAB HEART: RRR nl s1s2. ABDOMEN: soft nondistended. EXTREMITIES: No CCE NEUROLOGICAL: Cranial nerves II through XII grossly intact. PSYCH: Normal mood, normal affect. SKIN: Eschar left heel. nonoozing, no odor appreciated Laboratory Results - last 24 hr 05/15/18 05/15/18 05/16/18 17:53 21:10 05:46 WBC RBC Hgb Hct MCV MCH MCHC RDW Plt Count MPV Sodium Potassium Chloride Carbon Dioxide Anion Gap BUN Creatinine Creat Clearance w eGFR POC Glucometer 209 170 195 Random Glucose Calcium Phosphorus Magnesium TSH Free T4 Gentamicin Trough 05/16/18 05/16/18 05/16/18 07:00 07:00 07:00 WBC 13.2 H RBC 3.52 L Hgb 10.7 Hct 32.5 MCV 92.3 MCH 30.5 MCHC 33.0 RDW 16.1 H Plt Count 410 MPV 8.4 Sodium 137 Potassium 3.1 L Chloride 108 H Carbon Dioxide 20 L Anion Gap 10 BUN 3 L Creatinine 0.6 Creat Clearance w eGFR 109.11 POC Glucometer Random Glucose 204 H Calcium 8.2 L Phosphorus 2.7 Magnesium 1.8 TSH 1.12 Free T4 1.58 H Gentamicin Trough 0.3 L 05/16/18 11:13 WBC RBC Hgb Hct MCV MCH MCHC RDW Plt Count MPV Sodium Potassium Chloride Carbon Dioxide Anion Gap BUN Creatinine Creat Clearance w eGFR POC Glucometer 300 Random Glucose Calcium Phosphorus Magnesium TSH Free T4 Gentamicin Trough Active Medications Generic Name Dose Route Start Last Admin Trade Name Freq PRN Reason Stop Dose Admin Al Hydroxide/Mg Hydroxide 30 ml 05/16/18 08:33 05/16/18 10:03 Mylanta Oral Suspension - PO 30 ml Q6H PRN Administration DYSPEPSIA Amitriptyline HCl 10 mg 05/15/18 10:00 05/16/18 10:02 Elavil - PO 10 mg DAILY SHO Administration Aspirin 81 mg 05/15/18 10:00 05/16/18 10:02 Asa - PO 81 mg DAILY SHO Administration Atorvastatin Calcium 40 mg 05/14/18 22:00 05/15/18 21:08 Lipitor - PO 40 mg HS SHO Administration Enalapril Maleate 2.5 mg 05/15/18 10:00 05/16/18 10:02 Vasotec - PO 2.5 mg DAILY SHO Administration Potassium Chloride/Sodium Chloride 20 meq in 1,000 mls @ 100 mls/hr 05/14/18 17:45 05/15/18 17:51 Ns+20 Meq Kcl - IV Not Given ASDIR [facility]SO Metronidazole 500 mg in 100 mls @ 100 mls/hr 05/14/18 18:15 05/16/18 10:03 Flagyl 500mg Premixed Ivpb - IVPB 100 mls/hr Q8H-IV [facility]O Administration Levofloxacin 500 mg in 100 mls @ 100 mls/hr 05/16/18 10:00 05/16/18 11:19 Levaquin 500 Mg Premixed Ivpb - IVPB 100 mls/hr DAILY [facility]O Administration Protocol Insulin Aspart 1 vial 05/14/18 22:00 05/16/18 11:17 Novolog Vial Sliding Scale - SQ 3 units ACHS SHO Administration Protocol Pregabalin 200 mg 05/15/18 22:00 05/15/18 21:08 Lyrica - PO 200 mg HS SHO Administration ASSESSMENT/PLAN: 43yo F with h/o IDDM, HTN, chronic back pain, who presents today from Dr. Aleman's office after having tachycardia of 130bpm during his office visit. #Diffuse abdominal pain 2/2 Acute Diverticulitis CTAP---> Acute Diverticulitis of distal descending colon s/p levaquin. Flagyl and Gentamycin ID on board Urine Culture pending Blood culture + 1 bottle--> gram neg bacilli. #UTI leukocyte esterase 3+ WBC's 832 Urine Culture pending On ABx coverage #IDDM Insulin Sliding scale Will add levemir if BGMs remain elevated #FEN: Fluids: NS@100cc/hr + 20mEq KCl Monitor electrolytes Diabetic diet #PPX: DVT - SCDs #Dispo: Med-Surg Visit type - Emergency Visit Emergency Visit: Yes ED Registration Date: 05/14/18 Care time: The patient presented to the Emergency Department on the above date and was hospitalized for further evaluation of their emergent condition. - New Patient This patient is new to me today: No - Critical Care Critical Care patient: No
[2018-05-16] MEDS: SODIUM CHLORIDE 0.9%/KCL 20 MEQ/1,000 ML INFUS.BAG IV SCH ×2 (14:35→16:57)
--- NOTE | 2018-05-16 17:49 | PN ---
Progress Note (short form) - Note Progress Note: clinically improving eating no abdominal pain nofever chills last nigh no tylenol or pain meds today Vital Signs Period Temp Pulse Resp BP Sys/Garcia Pulse Ox Last 24 Hr 98.1 F-98.5 F 96-122 20-22 106-152/66-89 97 cor-rrr llungs clear abd soft,nt ext no edema CBC, BMP 05/16/18 07:00 05/16/18 07:00 Microbiology 05/14/18 14:20 Urine - Urine Clean Catch Urine Culture - Preliminary Lactose Fermenting Neg Bacilli Proteus Species 05/14/18 19:31 Blood - Peripheral Venous Blood Culture - Preliminary Lactose Fermenting Neg Bacilli 05/14/18 19:31 Blood - Peripheral Venous Blood Culture - Preliminary NO GROWTH OBTAINED AFTER 24 HOURS, INCUBATION TO CONTINUE FOR 4 DAYS. imp/reccd 43 yo female admitted with chills, sweats, abdominal pain and diarrhea nonbloody one episode of vomiting no dysuria gram negative bacteremia diverticulitis UTI currently on levaquin/flagyl feels well now will continue gentamicin until culture results are back in am continue IVF f/u cultures Problem List - Problems (1) Gram-negative bacteremia Code(s): R78.81 - BACTEREMIA (2) Diverticulitis Code(s): K57.92 - DVTRCLI OF INTEST, PART UNSP, W/O PERF OR ABSCESS W/O BLEED (3) UTI (urinary tract infection) Code(s): N39.0 - URINARY TRACT INFECTION, SITE NOT SPECIFIED Qualifiers: Urinary tract infection type: acute cystitis Hematuria presence: without hematuria Qualified Code(s): N30.00 - Acute cystitis without hematuria (4) Diabetes Code(s): E11.9 - TYPE 2 DIABETES MELLITUS WITHOUT COMPLICATIONS (5) Penicillin allergy Code(s): Z88.0 - ALLERGY STATUS TO PENICILLIN
[2018-05-16] MEDS ORDERED: GENTAMICIN INJECTION 120 MG in DEXTROSE 5%-WATER - 250 ML IVPB SCH (19:00)
--- NOTE | 2018-05-16 19:21 | PN ---
Teaching Attending Note Name of Resident: Grayson De La Torre ATTENDING PHYSICIAN STATEMENT I saw and evaluated the patient. I reviewed the resident's note and discussed the case with the resident. I agree with the resident's findings and plan as documented. SUBJECTIVE: Patient is comfortable , no fever but slightly tachycardic. OBJECTIVE: Vital Signs Temperature 98.8 F 05/16/18 17:57 Pulse Rate 103 H 05/16/18 17:57 Respiratory Rate 20 05/16/18 17:57 Blood Pressure 116/74 05/16/18 17:57 O2 Sat by Pulse Oximetry (%) 97 05/16/18 09:00 GENERAL: NAD, awake, alert, and fully oriented HEENT: NC/AT, EOMi, DAMEON, dry mucosa, NECK: No JVD LUNGS: CTA bilaterally anteriorly. No wheezes, and no crackles. HEART: RRR, normal S1 and S2 without murmur appreciated ABDOMEN: Soft, nondistended, normoactive BS. MUSCULOSKELETAL: No CVA tenderness. EXTREMITIES: 2+ DP pulses, warm, well-perfused. No calf tenderness. No peripheral edema. L unstageable heel ulcer NEUROLOGICAL: CN 2-12 grossly intact. symmetrically in lower extremities. Normal speech. Gait is stable PSYCHIATRIC: Cooperative. Good eye contact. Appropriate mood and affect. SKIN: Warm, dry, no rashes noted CBCD WBC 13.2 K/mm3 (4.0-10.0) H 05/16/18 07:00 RBC 3.52 M/mm3 (3.60-5.2) L 05/16/18 07:00 Hgb 10.7 GM/dL (10.7-15.3) 05/16/18 07:00 Hct 32.5 % (32.4-45.2) 05/16/18 07:00 MCV 92.3 fl (80-96) 05/16/18 07:00 MCHC 33.0 g/dl (32.0-36.0) 05/16/18 07:00 RDW 16.1 % (11.6-15.6) H 05/16/18 07:00 Plt Count 410 K/MM3 (134-434) 05/16/18 07:00 MPV 8.4 fl (7.5-11.1) 05/16/18 07:00 CMP Sodium 137 mmol/L (136-145) 05/16/18 07:00 Potassium 3.1 mmol/L (3.5-5.1) L 05/16/18 07:00 Chloride 108 mmol/L (98-107) H 05/16/18 07:00 Carbon Dioxide 20 mmol/L (21-32) L 05/16/18 07:00 Anion Gap 10 MMOL/L (8-16) 05/16/18 07:00 BUN 3 mg/dL (7-18) L 05/16/18 07:00 Creatinine 0.6 mg/dL (0.55-1.3) 05/16/18 07:00 Creat Clearance w eGFR 109.11 (>60) 05/16/18 07:00 Random Glucose 204 mg/dL (74-106) H 05/16/18 07:00 Calcium 8.2 mg/dL (8.5-10.1) L 05/16/18 07:00 Total Bilirubin 0.9 mg/dL (0.2-1) 05/15/18 06:00 AST 12 U/L (15-37) L 05/15/18 06:00 ALT 12 U/L (13-61) L 05/15/18 06:00 Alkaline Phosphatase 127 U/L (45-117) H 05/15/18 06:00 Total Protein 5.8 g/dl (6.4-8.2) L 05/15/18 06:00 Albumin 2.0 g/dl (3.4-5.0) L 05/15/18 06:00 CARDIAC ENZYMES Creatine Kinase 35 U/L (26-192) 05/14/18 14:40 Troponin I < 0.02 ng/ml (0.00-0.05) 05/14/18 14:40 Current Medications Generic Name Dose Route Start Last Admin Trade Name Freq PRN Reason Stop Dose Admin Al Hydroxide/Mg Hydroxide 30 ml 05/16/18 08:33 05/16/18 10:03 Mylanta Oral Suspension - PO 30 ml Q6H PRN Administration DYSPEPSIA Amitriptyline HCl 10 mg 05/15/18 10:00 05/16/18 10:02 Elavil - PO 10 mg DAILY SHO Administration Aspirin 81 mg 05/15/18 10:00 05/16/18 10:02 Asa - PO 81 mg DAILY SHO Administration Atorvastatin Calcium 40 mg 05/14/18 22:00 05/15/18 21:08 Lipitor - PO 40 mg HS SHO Administration Enalapril Maleate 2.5 mg 05/15/18 10:00 05/16/18 10:02 Vasotec - PO 2.5 mg DAILY SHO Administration Potassium Chloride/Sodium Chloride 20 meq in 1,000 mls @ 100 mls/hr 05/14/18 17:45 05/16/18 16:57 Ns+20 Meq Kcl - IV Not Given ASDIR SHO Metronidazole 500 mg in 100 mls @ 100 mls/hr 05/14/18 18:15 05/16/18 16:59 Flagyl 500mg Premixed Ivpb - IVPB 100 mls/hr Q8H-IV SHO Administration Levofloxacin 500 mg in 100 mls @ 100 mls/hr 05/16/18 10:00 05/16/18 11:19 Levaquin 500 Mg Premixed Ivpb - IVPB 100 mls/hr DAILY SHO Administration Protocol Gentamicin Sulfate/Sodium Chloride 80 mg in 100 mls @ 100 mls/hr 05/16/18 18: 00 Garamycin 80 Mg Premixed Ivpb - IVPB Q8H-IV SHO Insulin Aspart 1 vial 05/14/18 22:00 05/16/18 16:56 Novolog Vial Sliding Scale - SQ 3 units ACHS SHO Administration Protocol Pregabalin 200 mg 05/15/18 22:00 05/15/18 21:08 Lyrica - PO 200 mg HS SHO Administration Home Medications Medication Instructions Recorded Aspirin [ASA -] 81 mg PO DAILY 05/14/18 Enalapril Maleate [Vasotec -] 2.5 mg PO DAILY 05/14/18 Insulin Detemir [Levemir Flextouch] 26 unit SQ HS 05/14/18 Insulin Lispro [Humalog] 6 unit SQ TID 05/14/18 Pregabalin [Lyrica -] 200 mg PO HS 05/14/18 Simvastatin [Zocor] 80 mg PO HS 05/14/18 Albuterol Sulfate Inhaler - 05/15/18 [Ventolin HFA Inhaler -] Diclofenac Sodium 75 mg PO DAILY 05/15/18 Nortriptyline HCl [Pamelor -] 10 mg PO DAILY 05/15/18 Microbiology Microbiology 05/16/18 11:48 Blood - Peripheral Venous Blood Culture - Preliminary NO GROWTH OBTAINED AFTER 48 HOURS, INCUBATION TO CONTINUE FOR 3 DAYS. 05/16/18 12:08 Blood - Peripheral Venous Blood Culture - Preliminary NO GROWTH OBTAINED AFTER 48 HOURS, INCUBATION TO CONTINUE FOR 3 DAYS. 05/14/18 19:31 Blood - Peripheral Venous Blood Culture - Preliminary NO GROWTH OBTAINED AFTER 72 HOURS, INCUBATION TO CONTINUE FOR 2 DAYS. 05/14/18 19:31 Blood - Peripheral Venous Blood Culture - Final Escherichia Coli 05/14/18 14:20 Urine - Urine Clean Catch Urine Culture - Final Escherichia Coli Proteus Mirabilis ASSESSMENT AND PLAN: Patient is a 43yo Female with PMHx of IDDM, HTN, chronic back pain, with hx of being in coma for 14 days in [place] who presents from Dr. Aleman's office after having tachycardia of 130bpm during his office visit, and was send to ED. for further care. # Gram negative E.coli bacteremia : On iv azactam and flagyl s/p levaquin. on IV gentamicin # Acute Sepsis possible due to UTI, IVF continue, Bld Cx e.coli # Acute UTI on Azactam and Flagyl , ID on the case. Patient is allergic to Penicillin , given one dose of Gentamicin 320mg # Hx of intubation due to coma in [place] # Hyperglycemia s/p IVF, sliding scale with coverage continue # Acute hyponatremia/psuedohyponatremia improved post ivf #Acute hypokalemia will continue to replete the potassium # Escar on Left lower extremity heel ;doesn't look infected. DVT Px; Heparin sq
[2018-05-16] MEDS: GENTAMICIN 80 MG PREMIXED IVPB 80 MG/100 ML BAG IVPB SCH (21:32)
[2018-05-16] MEDS: ATORVASTATIN CA 40 MG TABLET (FP) PO SCH (21:32)
[2018-05-16] MEDS: PREGABALIN 100 MG CAPSULE PO SCH (21:32)
[2018-05-17] MEDS: INSULIN SLIDING SCALE (NOVOLOG) 1 VIAL SQ SCH ×5 (01:03→21:21)
[2018-05-17] MEDS: ACETAMINOPHEN 325 MG TABLET (FP) PO PRN (01:18)
[2018-05-17] MEDS: INSULIN (LEVEMIR) 100 UNITS/ML UNITS SQ SCH (06:25)
[2018-05-17] MEDS: GENTAMICIN 80 MG PREMIXED IVPB 80 MG/100 ML BAG IVPB SCH ×2 (06:51→11:20)
[2018-05-17 08:01] LABS: MCH 30.6 pg (25.7-33.7); MCHC 33.2 g/dl (32.0-36.0); MEAN CELL VOLUME 92.2 fl (80-96); MEAN PLT VOLUME 8.5 fl (7.5-11.1); PLATELET COUNT 499 K/MM3 (134-434); RBC 3.58 M/mm3 (3.60-5.2); RDW 16.3 % (11.6-15.6)
[2018-05-17 08:06] LABS: ANION GAP 8 MMOL/L (8-16); BLOOD UREA NITROGEN 7 mg/dL (7-18); CALCIUM 8.5 mg/dL (8.5-10.1); CHLORIDE 108 mmol/L (98-107); CO2 23 mmol/L (21-32); CREATININE 0.7 mg/dL (0.55-1.3); GLUCOSE,RANDOM 292 mg/dL (74-106); MAGNESIUM 1.8 mg/dL (1.8-2.4); PHOSPHOROUS 3.7 mg/dL (2.5-4.9); POTASSIUM 3.6 mmol/L (3.5-5.1); SODIUM 139 mmol/L (136-145)
[2018-05-17] MEDS: SODIUM CHLORIDE 0.9%/KCL 20 MEQ/1,000 ML INFUS.BAG IV SCH ×3 (09:05→22:06)
[2018-05-17] MEDS ORDERED: PT OWN MED DRAWER 7, Y5N ONE ×2 (09:52→17:20)
[2018-05-17] MEDS: ASPIRIN 81 MG CHEWABLE TABLETS PO SCH (09:56)
[2018-05-17] MEDS: ENALAPRIL MALEATE 2.5 MG TABLET (FP) PO SCH (09:56)
[2018-05-17] MEDS: AMITRIPTYLINE HCL 10 MG TABLET (FP) PO SCH (09:56)
--- NOTE | 2018-05-17 14:32 | PN ---
Progress Note (short form) - Note Progress Note: clinically improving eating no abdominal pain no fever or chills wants to leave Vital Signs Period Temp Pulse Resp BP Sys/Garcia Pulse Ox Last 24 Hr 97.9 F-100.3 F 81-103 18-20 116-149/52-90 97 cor-rrr lungs clear abd soft,nt ext no edema CBC, BMP 05/17/18 06:00 05/17/18 06:00 Microbiology 05/16/18 11:48 Blood - Peripheral Venous Blood Culture - Preliminary NO GROWTH OBTAINED AFTER 24 HOURS, INCUBATION TO CONTINUE FOR 4 DAYS. 05/16/18 12:08 Blood - Peripheral Venous Blood Culture - Preliminary NO GROWTH OBTAINED AFTER 24 HOURS, INCUBATION TO CONTINUE FOR 4 DAYS. 05/14/18 19:31 Blood - Peripheral Venous Blood Culture - Final Escherichia Coli 05/14/18 14:20 Urine - Urine Clean Catch Urine Culture - Final Escherichia Coli Proteus Mirabilis 05/14/18 19:31 Blood - Peripheral Venous Blood Culture - Preliminary NO GROWTH OBTAINED AFTER 48 HOURS, INCUBATION TO CONTINUE FOR 3 DAYS. imp/reccd 43 yo female admitted with chills, sweats, abdominal pain and diarrhea nonbloody one episode of vomiting no dysuria gram negative bacteremia- Ecoli secondary to UTI diverticulitis UTI severe pen allergy day #3 antibiotics sensitivities reviewed switch to azactam and po flagyl would try to finish at least 7 days iv patient is reluctant to stay there are no good po options given her penicillin allergy and resistance pattern of her ecoli Problem List - Problems (1) Gram-negative bacteremia Code(s): R78.81 - BACTEREMIA (2) Diverticulitis Code(s): K57.92 - DVTRCLI OF INTEST, PART UNSP, W/O PERF OR ABSCESS W/O BLEED (3) UTI (urinary tract infection) Code(s): N39.0 - URINARY TRACT INFECTION, SITE NOT SPECIFIED Qualifiers: Urinary tract infection type: acute cystitis Hematuria presence: without hematuria Qualified Code(s): N30.00 - Acute cystitis without hematuria (4) Diabetes Code(s): E11.9 - TYPE 2 DIABETES MELLITUS WITHOUT COMPLICATIONS (5) Penicillin allergy Code(s): Z88.0 - ALLERGY STATUS TO PENICILLIN
[2018-05-17] MEDS: AZTREONAM 1 GM in DEXTROSE 5%-WATER - 50 ML IVPB SCH (17:23)
--- NOTE | 2018-05-17 19:09 | PN ---
Progress Note (short form) - Note Progress Note: Patient wants to go home, explained in details that is not a good idea, since growing gram negative e.coli. Vital Signs Temperature 98.7 F 05/17/18 17:17 Pulse Rate 85 05/17/18 19:03 Respiratory Rate 20 05/17/18 17:17 Blood Pressure 147/91 05/17/18 17:17 O2 Sat by Pulse Oximetry (%) 98 05/17/18 19:03 Initial Vital Signs Temp Pulse Resp BP Pulse Ox 99.4 F 129 H 20 113/66 99 05/14/18 13:58 05/14/18 13:58 05/14/18 13:58 05/14/18 13:58 05/14/18 13:58 GENERAL: NAD, awake, alert, and fully oriented, diaphoretic HEENT: NC/AT, EOMi, DAME[place], dry mucosa, NECK: No JVD LUNGS: CTA bilaterally anteriorly. No wheezes, and no crackles. No accessory muscle use. HEART: RRR, normal S1 and S2 without murmur appreciated ABDOMEN: Soft, nondistended, normoactive BS, no guarding ,nt MUSCULOSKELETAL: No CVA tenderness. EXTREMITIES: 2+ DP pulses, warm, well-perfused. No calf tenderness. No peripheral edema. NEUROLOGICAL: CN 2-12 grossly intact PSYCHIATRIC: tearful, wants to go home. SKIN: Warm, dry, no rashes noted CBCD WBC 11.0 K/mm3 (4.0-10.0) H 05/17/18 06:00 RBC 3.58 M/mm3 (3.60-5.2) L 05/17/18 06:00 Hgb 11.0 GM/dL (10.7-15.3) 05/17/18 06:00 Hct 33.0 % (32.4-45.2) 05/17/18 06:00 MCV 92.2 fl (80-96) 05/17/18 06:00 MCHC 33.2 g/dl (32.0-36.0) 05/17/18 06:00 RDW 16.3 % (11.6-15.6) H 05/17/18 06:00 Plt Count 499 K/MM3 (134-434) H D 05/17/18 06:00 MPV 8.5 fl (7.5-11.1) 05/17/18 06:00 CMP Sodium 139 mmol/L (136-145) 05/17/18 06:00 Potassium 3.6 mmol/L (3.5-5.1) 05/17/18 06:00 Chloride 108 mmol/L (98-107) H 05/17/18 06:00 Carbon Dioxide 23 mmol/L (21-32) 05/17/18 06:00 Anion Gap 8 MMOL/L (8-16) 05/17/18 06:00 BUN 7 mg/dL (7-18) 05/17/18 06:00 Creatinine 0.7 mg/dL (0.55-1.3) 05/17/18 06:00 Creat Clearance w eGFR 91.33 (>60) 05/17/18 06:00 Random Glucose 292 mg/dL (74-106) H 05/17/18 06:00 Calcium 8.5 mg/dL (8.5-10.1) 05/17/18 06:00 Total Bilirubin 0.9 mg/dL (0.2-1) 05/15/18 06:00 AST 12 U/L (15-37) L 05/15/18 06:00 ALT 12 U/L (13-61) L 05/15/18 06:00 Alkaline Phosphatase 127 U/L (45-117) H 05/15/18 06:00 Total Protein 5.8 g/dl (6.4-8.2) L 05/15/18 06:00 Albumin 2.0 g/dl (3.4-5.0) L 05/15/18 06:00 CARDIAC ENZYMES Creatine Kinase 35 U/L (26-192) 05/14/18 14:40 Troponin I < 0.02 ng/ml (0.00-0.05) 05/14/18 14:40 Current Medications Generic Name Dose Route Start Last Admin Trade Name Freq PRN Reason Stop Dose Admin Acetaminophen 650 mg 05/17/18 01:01 05/17/18 01:18 Tylenol - PO 650 mg Q6H PRN Administration Fever Or Pain Level 1-5 Al Hydroxide/Mg Hydroxide 30 ml 05/16/18 08:33 05/16/18 10:03 Mylanta Oral Suspension - PO 30 ml Q6H PRN Administration DYSPEPSIA Amitriptyline HCl 10 mg 05/15/18 10:00 05/17/18 09:56 Elavil - PO 10 mg DAILY SHO Administration Aspirin 81 mg 05/15/18 10:00 05/17/18 09:56 Asa - PO 81 mg DAILY SHO Administration Atorvastatin Calcium 40 mg 05/14/18 22:00 05/16/18 21:32 Lipitor - PO 40 mg HS SHO Administration Enalapril Maleate 2.5 mg 05/15/18 10:00 05/17/18 09:56 Vasotec - PO 2.5 mg DAILY SHO Administration Potassium Chloride/Sodium Chloride 20 meq in 1,000 mls @ 100 mls/hr 05/14/18 17:45 05/17/18 09:05 Ns+20 Meq Kcl - IV 100 mls/hr ASDIR SHO Administration Aztreonam 1 gm/ Dextrose 50 mls @ 100 mls/hr 05/17/18 18:00 05/17/18 17:23 IVPB 100 mls/hr Q8H-IV SHO Administration Protocol Insulin Aspart 1 vial 05/14/18 22:00 05/17/18 17:22 Novolog Vial Sliding Scale - SQ 1 units ACHS [facility] Administration Protocol Insulin Detemir 26 units 05/17/18 07:00 05/17/18 06:25 Levemir Vial SQ 26 units AM SHO Administration Metronidazole 500 mg 05/17/18 22:00 Flagyl - PO TID SHO Pregabalin 200 mg 05/15/18 22:00 05/16/18 21:32 Lyrica - PO 200 mg HS SHO Administration Home Medications Medication Instructions Recorded Aspirin [ASA -] 81 mg PO DAILY 05/14/18 Enalapril Maleate [Vasotec -] 2.5 mg PO DAILY 05/14/18 Insulin Detemir [Levemir Flextouch] 26 unit SQ HS 05/14/18 Insulin Lispro [Humalog] 6 unit SQ TID 05/14/18 Pregabalin [Lyrica -] 200 mg PO HS 05/14/18 Simvastatin [Zocor] 80 mg PO HS 05/14/18 Albuterol Sulfate Inhaler - 05/15/18 [Ventolin HFA Inhaler -] Diclofenac Sodium 75 mg PO DAILY 05/15/18 Nortriptyline HCl [Pamelor -] 10 mg PO DAILY 05/15/18 Microbiology 05/16/18 11:48 Blood - Peripheral Venous Blood Culture - Preliminary NO GROWTH OBTAINED AFTER 24 HOURS, INCUBATION TO CONTINUE FOR 4 DAYS. 05/16/18 12:08 Blood - Peripheral Venous Blood Culture - Preliminary NO GROWTH OBTAINED AFTER 24 HOURS, INCUBATION TO CONTINUE FOR 4 DAYS. 05/14/18 19:31 Blood - Peripheral Venous Blood Culture - Final Escherichia Coli 05/14/18 14:20 Urine - Urine Clean Catch Urine Culture - Final Escherichia Coli Proteus Mirabilis 05/14/18 19:31 Blood - Peripheral Venous Blood Culture - Preliminary NO GROWTH OBTAINED AFTER 48 HOURS, INCUBATION TO CONTINUE FOR 3 DAYS. ASSESSMENT AND PLAN: Patient is a 43yo F with PMHx of IDDM, HTN, chronic back pain, who presents today from Dr. Aleman's office for having tachycardia of 130bpm. was send to ED. for further care. # Gram negative bacteremia: On Azactam and flagyl IV since allergic to PCN gets anaphelaxis. # Acute Sepsis possible due to UTI, IVF continue, # Acute UTI given a dose Bactrim DS , s/p IV Levaquin and Flagyl , ID . Patient is allergic to Penicillin # Hx of intubation due to coma # Hyperglycemia on IVF, sliding scale with coverage, will continue her levemir and sliding scale with coverage # Acute hyponatremia/psuedohyponatremia resolved #Acute hypokalemia repleted # Escar on Left lower extremity heel ;doesn't look infected. DVt Px; scds Visit type - Emergency Visit Emergency Visit: Yes ED Registration Date: 05/14/18 Care time: The patient presented to the Emergency Department on the above date and was hospitalized for further evaluation of their emergent condition. - New Patient This patient is new to me today: No - Critical Care Critical Care patient: No - Discharge Referral Referred to [facility] Med P.C.: No
[2018-05-17] MEDS: ATORVASTATIN CA 40 MG TABLET (FP) PO SCH (21:16)
[2018-05-17] MEDS: PREGABALIN 100 MG CAPSULE PO SCH (21:16)
[2018-05-17] MEDS: metroNIDAZOLE 250 MG TABLET PO SCH (21:17)
[2018-05-18] MEDS: AZTREONAM 1 GM in DEXTROSE 5%-WATER - 50 ML IVPB SCH ×3 (01:33→17:47)
[2018-05-18] MEDS: metroNIDAZOLE 250 MG TABLET PO SCH ×3 (05:16→21:17)
[2018-05-18] MEDS: INSULIN (LEVEMIR) 100 UNITS/ML UNITS SQ SCH (06:10)
[2018-05-18] MEDS: INSULIN SLIDING SCALE (NOVOLOG) 1 VIAL SQ SCH ×4 (06:11→21:20)
[2018-05-18 07:35] LABS: BASO % 0.4 % (0-2.0); EOS % 1.4 % (0-4.5); HEMATOCRIT 32.6 % (32.4-45.2); MCH 30.9 pg (25.7-33.7); MCHC 33.8 g/dl (32.0-36.0); MEAN CELL VOLUME 91.3 fl (80-96); MEAN PLT VOLUME 8.2 fl (7.5-11.1); MONO % 9.3 % (3.8-10.2); NEUT % 66.9 % (42.8-82.8); PLATELET COUNT 516 K/MM3 (134-434); RBC 3.57 M/mm3 (3.60-5.2); RDW 16.3 % (11.6-15.6); WHITE BLOOD COUNT 13.9 K/mm3 (4.0-10.0)
[2018-05-18 08:08] LABS: ALK PHOS 148 U/L (45-117); ANION GAP 8 MMOL/L (8-16); BILIRUBIN,TOTAL 0.3 mg/dL (0.2-1); BLOOD UREA NITROGEN 9 mg/dL (7-18); CALCIUM 8.7 mg/dL (8.5-10.1); CHLORIDE 105 mmol/L (98-107); CO2 25 mmol/L (21-32); CREATININE 0.6 mg/dL (0.55-1.3); GLUCOSE,RANDOM 248 mg/dL (74-106); POTASSIUM 3.4 mmol/L (3.5-5.1); SGOT/AST 7 U/L (15-37); SGPT/ALT 9 U/L (13-61); SODIUM 138 mmol/L (136-145)
[2018-05-18] MEDS ORDERED: PT OWN MED DRAWER 7, Y5N ONE ×2 (09:32→17:46)
[2018-05-18] MEDS: SODIUM CHLORIDE 0.9%/KCL 20 MEQ/1,000 ML INFUS.BAG IV SCH ×3 (09:33→21:17)
[2018-05-18] MEDS: ENALAPRIL MALEATE 2.5 MG TABLET (FP) PO SCH (09:33)
[2018-05-18] MEDS: ASPIRIN 81 MG CHEWABLE TABLETS PO SCH (09:33)
[2018-05-18] MEDS: AMITRIPTYLINE HCL 10 MG TABLET (FP) PO SCH (09:34)
--- NOTE | 2018-05-18 09:42 | PN ---
Progress Note (short form) - Note Progress Note: clinically improving now willing to stay Vital Signs Period Temp Pulse Resp BP Sys/Garcia Pulse Ox Last 24 Hr 98.3 F-99.1 F 85-98 18-20 117-147/52-91 98-98 cor-rrr lungs clear abd soft,nt ext no edema CBC, BMP 05/18/18 06:00 05/18/18 06:00 Microbiology 05/14/18 19:31 Blood - Peripheral Venous Blood Culture - Preliminary NO GROWTH OBTAINED AFTER 72 HOURS, INCUBATION TO CONTINUE FOR 2 DAYS. 05/16/18 11:48 Blood - Peripheral Venous Blood Culture - Preliminary NO GROWTH OBTAINED AFTER 24 HOURS, INCUBATION TO CONTINUE FOR 4 DAYS. 05/16/18 12:08 Blood - Peripheral Venous Blood Culture - Preliminary NO GROWTH OBTAINED AFTER 24 HOURS, INCUBATION TO CONTINUE FOR 4 DAYS. 05/14/18 19:31 Blood - Peripheral Venous Blood Culture - Final Escherichia Coli 05/14/18 14:20 Urine - Urine Clean Catch Urine Culture - Final Escherichia Coli Proteus Mirabilis imp/reccd 43 yo female admitted with chills, sweats, abdominal pain and diarrhea nonbloody one episode of vomiting no dysuria gram negative bacteremia- Ecoli secondary to UTI diverticulitis mild resolved UTI severe penicillin allergy day #4 antibiotics sensitivities reviewed switch to azactam and po flagyl would try to finish at least 7 days iv patient is reluctant to stay there are no good po options given her penicillin allergy and resistance pattern of her ecoli follow cbc- rising wbc is concerning although she feels well Problem List - Problems (1) Gram-negative bacteremia Code(s): R78.81 - BACTEREMIA (2) Diverticulitis Code(s): K57.92 - DVTRCLI OF INTEST, PART UNSP, W/O PERF OR ABSCESS W/O BLEED (3) UTI (urinary tract infection) Code(s): N39.0 - URINARY TRACT INFECTION, SITE NOT SPECIFIED Qualifiers: Urinary tract infection type: acute cystitis Hematuria presence: without hematuria Qualified Code(s): N30.00 - Acute cystitis without hematuria (4) Diabetes Code(s): E11.9 - TYPE 2 DIABETES MELLITUS WITHOUT COMPLICATIONS (5) Penicillin allergy Code(s): Z88.0 - ALLERGY STATUS TO PENICILLIN
--- NOTE | 2018-05-18 17:44 | PN ---
Progress Note (short form) - Note Progress Note: Patient is happy today, family at bedside.Vital Signs Temperature 98.0 F 05/18/18 14:46 Pulse Rate 103 H 05/18/18 14:46 Respiratory Rate 18 05/18/18 14:46 Blood Pressure 113/74 05/18/18 14:46 O2 Sat by Pulse Oximetry (%) 98 05/18/18 09:00 GENERAL: NAD, awake, alert, and fully oriented, diaphoretic HEENT: NC/AT, EOMi, DAMEON, dry mucosa, NECK: No JVD LUNGS: CTA bilaterally anteriorly. No wheezes, and no crackles. HEART: tachycardic , normal S1 and S2 without murmur appreciated ABDOMEN: Soft, nondistended, normoactive BS, no guarding ,ND. MUSCULOSKELETAL: No CVA tenderness. EXTREMITIES: 2+ DP pulses, warm, well-perfused. . No edema. NEUROLOGICAL: CN 2-12 grossly intact PSYCHIATRIC: wants to go home. SKIN: Warm, dry, no rashes noted CBCD WBC 13.9 K/mm3 (4.0-10.0) H 05/18/18 06:00 RBC 3.57 M/mm3 (3.60-5.2) L 05/18/18 06:00 Hgb 11.0 GM/dL (10.7-15.3) 05/18/18 06:00 Hct 32.6 % (32.4-45.2) 05/18/18 06:00 MCV 91.3 fl (80-96) 05/18/18 06:00 MCHC 33.8 g/dl (32.0-36.0) 05/18/18 06:00 RDW 16.3 % (11.6-15.6) H 05/18/18 06:00 Plt Count 516 K/MM3 (134-434) H 05/18/18 06:00 MPV 8.2 fl (7.5-11.1) 05/18/18 06:00 CMP Sodium 138 mmol/L (136-145) 05/18/18 06:00 Potassium 3.4 mmol/L (3.5-5.1) L 05/18/18 06:00 Chloride 105 mmol/L (98-107) 05/18/18 06:00 Carbon Dioxide 25 mmol/L (21-32) 05/18/18 06:00 Anion Gap 8 MMOL/L (8-16) 05/18/18 06:00 BUN 9 mg/dL (7-18) 05/18/18 06:00 Creatinine 0.6 mg/dL (0.55-1.3) 05/18/18 06:00 Creat Clearance w eGFR 109.11 (>60) 05/18/18 06:00 Random Glucose 248 mg/dL (74-106) H 05/18/18 06:00 Calcium 8.7 mg/dL (8.5-10.1) 05/18/18 06:00 Total Bilirubin 0.3 mg/dL (0.2-1) 05/18/18 06:00 AST 7 U/L (15-37) L 05/18/18 06:00 ALT 9 U/L (13-61) L 05/18/18 06:00 Alkaline Phosphatase 148 U/L (45-117) H 05/18/18 06:00 Total Protein 6.0 g/dl (6.4-8.2) L 05/18/18 06:00 Albumin 2.0 g/dl (3.4-5.0) L 05/18/18 06:00 CARDIAC ENZYMES Creatine Kinase 35 U/L (26-192) 05/14/18 14:40 Troponin I < 0.02 ng/ml (0.00-0.05) 05/14/18 14:40 Current Medications Generic Name Dose Route Start Last Admin Trade Name Freq PRN Reason Stop Dose Admin Acetaminophen 650 mg 05/17/18 01:01 05/17/18 01:18 Tylenol - PO 650 mg Q6H PRN Administration Fever Or Pain Level 1-5 Al Hydroxide/Mg Hydroxide 30 ml 05/16/18 08:33 05/16/18 10:03 Mylanta Oral Suspension - PO 30 ml Q6H PRN Administration DYSPEPSIA Amitriptyline HCl 10 mg 05/15/18 10:00 05/18/18 09:34 Elavil - PO 10 mg DAILY SHO Administration Aspirin 81 mg 05/15/18 10:00 05/18/18 09:33 Asa - PO 81 mg DAILY SHO Administration Atorvastatin Calcium 40 mg 05/14/18 22:00 05/17/18 21:16 Lipitor - PO 40 mg HS SHO Administration Enalapril Maleate 2.5 mg 05/15/18 10:00 05/18/18 09:33 Vasotec - PO 2.5 mg DAILY SHO Administration Potassium Chloride/Sodium Chloride 20 meq in 1,000 mls @ 100 mls/hr 05/14/18 17:45 05/18/18 09:33 Ns+20 Meq Kcl - IV 100 mls/hr ASDIR SHO Administration Aztreonam 1 gm/ Dextrose 50 mls @ 100 mls/hr 05/17/18 18:00 05/18/18 09:34 IVPB 100 mls/hr Q8H-IV SHO Administration Protocol Insulin Aspart 1 vial 05/14/18 22:00 05/18/18 17:35 Novolog Vial Sliding Scale - SQ 3 units ACHS SHO Administration Protocol Insulin Detemir 26 units 05/17/18 07:00 05/18/18 06:10 Levemir Vial SQ 26 units AM SHO Administration Metronidazole 500 mg 05/17/18 22:00 05/18/18 13:49 Flagyl - PO 500 mg TID SHO Administration Pregabalin 200 mg 05/15/18 22:00 05/17/18 21:16 Lyrica - PO 200 mg HS SHO Administration Home Medications Medication Instructions Recorded Aspirin [ASA -] 81 mg PO DAILY 05/14/18 Enalapril Maleate [Vasotec -] 2.5 mg PO DAILY 05/14/18 Insulin Detemir [Levemir Flextouch] 26 unit SQ HS 05/14/18 Insulin Lispro [Humalog] 6 unit SQ TID 05/14/18 Pregabalin [Lyrica -] 200 mg PO HS 05/14/18 Simvastatin [Zocor] 80 mg PO HS 05/14/18 Diclofenac Sodium 75 mg PO DAILY 05/15/18 Nortriptyline HCl [Pamelor -] 10 mg PO DAILY 05/15/18 Microbiology 05/16/18 11:48 Blood - Peripheral Venous Blood Culture - Preliminary NO GROWTH OBTAINED AFTER 48 HOURS, INCUBATION TO CONTINUE FOR 3 DAYS. 05/16/18 12:08 Blood - Peripheral Venous Blood Culture - Preliminary NO GROWTH OBTAINED AFTER 48 HOURS, INCUBATION TO CONTINUE FOR 3 DAYS. 05/14/18 19:31 Blood - Peripheral Venous Blood Culture - Preliminary NO GROWTH OBTAINED AFTER 72 HOURS, INCUBATION TO CONTINUE FOR 2 DAYS. 05/14/18 19:31 Blood - Peripheral Venous Blood Culture - Final Escherichia Coli 05/14/18 14:20 Urine - Urine Clean Catch Urine Culture - Final Escherichia Coli Proteus Mirabilis Assessment and plan: Patient is a 43yo F with PMHx of IDDM, HTN, chronic back pain, who presents today from Dr. Aleman's office for having tachycardia of 130bpm. was send to ED. for further care. # Gram negative bacteremia: On Azactam IV and po flagyl now from IV since allergic to PCN gets anaphelaxis. # s/p Sepsis due to UTI, IVF continue, # Acute UTI continue with IV azactam and po Flagyl , ID . Patient is allergic to Penicillin # Hx of intubation due to coma # Hyperglycemia on IVF, sliding scale with coverage, will continue her levemir and sliding scale with coverage # Acute hyponatremia/psuedohyponatremia resolved #Acute hypokalemia continue to replete as needed # Escar on Left lower extremity heel ;doesn't look infected. DVt Px; scds Visit type - Emergency Visit Emergency Visit: Yes ED Registration Date: 05/14/18 Care time: The patient presented to the Emergency Department on the above date and was hospitalized for further evaluation of their emergent condition. - New Patient This patient is new to me today: No - Critical Care Critical Care patient: No - Discharge Referral [facility] No
[2018-05-18] MEDS: ENOXAPARIN NA (PORCINE) 40 MG/0.4 ML DISP.SYRIN SQ SCH (18:21)
[2018-05-18] MEDS: ACETAMINOPHEN 325 MG TABLET (FP) PO PRN (20:04)
[2018-05-18] MEDS: ATORVASTATIN CA 40 MG TABLET (FP) PO SCH (21:18)
[2018-05-18] MEDS: PREGABALIN 100 MG CAPSULE PO SCH (21:18)
[2018-05-19] MEDS: AZTREONAM 1 GM in DEXTROSE 5%-WATER - 50 ML IVPB SCH ×3 (01:31→17:04)
[2018-05-19] MEDS: metroNIDAZOLE 250 MG TABLET PO SCH ×2 (05:41→14:06)
[2018-05-19] MEDS: INSULIN SLIDING SCALE (NOVOLOG) 1 VIAL SQ SCH ×3 (06:04→17:15)
[2018-05-19] MEDS: INSULIN (LEVEMIR) 100 UNITS/ML UNITS SQ SCH (06:04)
[2018-05-19 07:27] LABS: BASO % 0.5 % (0-2.0); EOS % 1.4 % (0-4.5); HEMATOCRIT 31.5 % (32.4-45.2); HEMOGLOBIN 10.5 GM/dL (10.7-15.3); MCH 30.3 pg (25.7-33.7); MCHC 33.5 g/dl (32.0-36.0); MEAN CELL VOLUME 90.6 fl (80-96); MONO % 9.2 % (3.8-10.2); NEUT % 65.9 % (42.8-82.8); PLATELET COUNT 564 K/MM3 (134-434); RBC 3.47 M/mm3 (3.60-5.2); RDW 16.1 % (11.6-15.6); WHITE BLOOD COUNT 13.2 K/mm3 (4.0-10.0)
[2018-05-19 07:55] LABS: MAGNESIUM 1.5 mg/dL (1.8-2.4); PHOSPHOROUS 5.1 mg/dL (2.5-4.9)
[2018-05-19 09:45] LABS: ANION GAP 9 MMOL/L (8-16); BLOOD UREA NITROGEN 7 mg/dL (7-18); CALCIUM 8.3 mg/dL (8.5-10.1); CHLORIDE 108 mmol/L (98-107); CO2 25 mmol/L (21-32); CREATININE 0.7 mg/dL (0.55-1.3); GLUCOSE,RANDOM 206 mg/dL (74-106); POTASSIUM 3.7 mmol/L (3.5-5.1); SODIUM 141 mmol/L (136-145)
[2018-05-19] MEDS: AMITRIPTYLINE HCL 10 MG TABLET (FP) PO SCH (10:09)
[2018-05-19] MEDS: ASPIRIN 81 MG CHEWABLE TABLETS PO SCH (10:09)
[2018-05-19] MEDS: ENALAPRIL MALEATE 2.5 MG TABLET (FP) PO SCH (10:09)
[2018-05-19] MEDS: ENOXAPARIN NA (PORCINE) 40 MG/0.4 ML DISP.SYRIN SQ SCH (10:10)
[2018-05-19] MEDS ORDERED: PT OWN MED DRAWER 7, Y5N ONE (10:49)
--- NOTE | 2018-05-19 12:35 | PN ---
Progress Note, Physician History of Present Illness: 43yo F with h/o IDDM, HTN, chronic back pain, who presents today from Dr. Aleman's office after having tachycardia of 130bpm during his office visit. Pt reports initially going to Dr. Aleman's office due to hepatic steatosis that needed to be investigated and while she was having her vitals performed her HR was within the 130's bpm. Pt reports this has been chronic. Her last stress was 10/2017 which was reportedly normal (EF 60-65%). In addition, pt has been having multiple episodes of NB/NB emesis without any clear exacerbating factors. Pt's last colonoscopy and endoscopy was per Dr. Ko 1 year ago with again reportedly normal results. In addition, pt reports having been intubated in a hospital stay in [place] during end of February 2018-March 2018 due to her glucose levels. She had an insulin pump at that time, however it had malfunctioned and she did not receive any insulin throughout that time. As a result she was hospitalized and admitted to the ICU. She has been taking Novolog with a sliding scale and using Levemir for her long acting daily. PMH Diabetes Mellitus 2005 on insulin pump Diabetic neuropathy Hypertension Hyperlipidemia Low back pain Tachycardia - Current Medication List Current Medications: Active Medications Acetaminophen (Tylenol -) 650 mg PO Q6H PRN PRN Reason: Fever Or Pain Level 1-5 Last Admin: 05/18/18 20:04 Dose: 650 mg Al Hydroxide/Mg Hydroxide (Mylanta Oral Suspension -) 30 ml PO Q6H PRN PRN Reason: DYSPEPSIA Last Admin: 05/16/18 10:03 Dose: 30 ml Amitriptyline HCl (Elavil -) 10 mg PO DAILY [facility] Last Admin: 05/19/18 10:09 Dose: 10 mg Aspirin (Asa -) 81 mg PO DAILY [facility] Last Admin: 05/19/18 10:09 Dose: 81 mg Atorvastatin Calcium (Lipitor -) 40 mg PO HS [facility] Last Admin: 05/18/18 21:18 Dose: 40 mg Enalapril Maleate (Vasotec -) 2.5 mg PO DAILY [facility] Last Admin: 05/19/18 10:09 Dose: 2.5 mg Enoxaparin Sodium (Lovenox -) 40 mg SQ DAILY [facility] Last Admin: 05/19/18 10:10 Dose: Not Given Aztreonam 1 gm/ Dextrose 50 mls @ 100 mls/hr IVPB Q8H-IV [facility]; Protocol Last Admin: 05/19/18 10:09 Dose: 100 mls/hr Insulin Aspart (Novolog Vial Sliding Scale -) 1 vial SQ ACHS [facility]; Protocol Last Admin: 05/19/18 12:13 Dose: 3 units Insulin Detemir (Levemir Vial) 26 units SQ AM [facility] Last Admin: 05/19/18 06:04 Dose: 26 units Metronidazole (Flagyl -) 500 mg PO TID [facility] Last Admin: 05/19/18 05:41 Dose: 500 mg Pregabalin (Lyrica -) 200 mg PO HS [facility] Last Admin: 05/18/18 21:18 Dose: 200 mg - Objective Vital Signs: Vital Signs Temperature 98.1 F 05/19/18 06:00 Pulse Rate 94 H 05/19/18 06:00 Respiratory Rate 18 05/19/18 06:00 Blood Pressure 109/62 05/19/18 06:00 O2 Sat by Pulse Oximetry (%) 98 05/18/18 21:00 Eyes: Yes: WNL, Conjunctiva Clear, EOM Intact HENT: Yes: WNL, Atraumatic, Normocephalic Neck: Yes: WNL, Supple, Trachea Midline Cardiovascular: Yes: WNL, Regular Rate and Rhythm Respiratory: Yes: WNL, Regular, CTA Bilaterally Gastrointestinal: Yes: WNL, Normal Bowel Sounds Genitourinary: Yes: WNL Musculoskeletal: Yes: WNL Extremities: Yes: WNL Edema: No Integumentary: Yes: WNL Neurological: Yes: WNL, Alert, Oriented ...Motor Strength: WNL Psychiatric: Yes: WNL Labs: CBC, BMP 05/19/18 05:30 05/19/18 06:00 Problem List - Problems (1) Abdominal pain Code(s): R10.9 - UNSPECIFIED ABDOMINAL PAIN Qualifiers: Abdominal location: epigastric Qualified Code(s): R10.13 - Epigastric pain (2) Dehydration Code(s): E86.0 - DEHYDRATION (3) Hyperglycemia Code(s): R73.9 - HYPERGLYCEMIA, UNSPECIFIED (4) Hypokalemia Code(s): E87.6 - HYPOKALEMIA (5) UTI (urinary tract infection) Code(s): N39.0 - URINARY TRACT INFECTION, SITE NOT SPECIFIED Qualifiers: Urinary tract infection type: acute cystitis Hematuria presence: without hematuria Qualified Code(s): N30.00 - Acute cystitis without hematuria Assessment/Plan Imp; Sepsis r/o UTI Diabetes Mellitus 2004 on insulin pump Diabetic neuropathy Hypertension Hyperlipidemia Low back pain Tachycardia Liver steatosis Plan Cardiac morrison stable cont abx and rx as per medicine awaiting PICC line
--- NOTE | 2018-05-19 13:20 | DS ---
Physical Exam: SUBJECTIVE: Patient seen and examined at bedside. No acute events overnight. OBJECTIVE: Vital Signs Period Temp Pulse Resp BP Sys/Garcia Pulse Ox Last 24 Hr 98.0 F-98.1 F 94-103 18-18 109-113/62-74 98 PHYSICAL EXAM GENERAL: No acute distress HEAD: Normal with no signs of trauma. EYES: EOMI Sclera Clear NECK: Trachea midline, full range of motion, supple. LUNGS: CTAB HEART: RRR nl s1s2. ABDOMEN: soft nondistended, no suprapubic tenderness appreciated EXTREMITIES: No CCE NEUROLOGICAL: Cranial nerves II through XII grossly intact. PSYCH: Normal mood, normal affect. SKIN: Eschar left heel. nonoozing, no odor appreciated LABS Laboratory Results - last 24 hr 05/18/18 05/18/18 05/19/18 17:34 21:20 05:30 WBC 13.2 H RBC 3.47 L Hgb 10.5 L Hct 31.5 L MCV 90.6 MCH 30.3 MCHC 33.5 RDW 16.1 H Plt Count 564 H MPV 8.0 Absolute Neuts (auto) 8.7 H Neutrophils % 65.9 Lymphocytes % 23.0 Monocytes % 9.2 Eosinophils % 1.4 Basophils % 0.5 Nucleated RBC % 0 Sodium Potassium Chloride Carbon Dioxide Anion Gap BUN Creatinine Creat Clearance w eGFR POC Glucometer 271 238 Random Glucose Calcium Phosphorus Magnesium 05/19/18 05/19/18 05/19/18 05:44 06:00 11:30 WBC RBC Hgb Hct MCV MCH MCHC RDW Plt Count MPV Absolute Neuts (auto) Neutrophils % Lymphocytes % Monocytes % Eosinophils % Basophils % Nucleated RBC % Sodium 141 Potassium 3.7 Chloride 108 H Carbon Dioxide 25 Anion Gap 9 BUN 7 Creatinine 0.7 Creat Clearance w eGFR 91.33 POC Glucometer 202 265 Random Glucose 206 H Calcium 8.3 L Phosphorus 5.1 H Magnesium 1.5 L HOSPITAL COURSE: Date of Admission:05/14/18 43yo F with h/o IDDM, HTN, chronic back pain, who presented from Dr. Aleman's office after having tachycardia of 130bpm during his office visit. Pt underwent a CTAP which revealed acute Diverticulitis of distal descending colon. Initial WBC was 19.6. Pt was given 1 dose of bactrim and started on levaquin and Flagyl for intra-abdominal coverage given abdominal pain. iD was consulted and also gave one 320 mg dose of gentamycin. Blood and urine cultured were performed. Ucx revealed E Coli and Proteus Mirabilis. Blood culture was + for E. Coli. Leuk Est. was 3+ with 832 WBCs. Pt's initial Pt was placed on Levemir 26 U AM as well ISS for her DM as initial BGM was 453. Pt was also noted to be hypokalemic and was repleated accordingly. ID eventually switched pt to Aztreonam I.V in addition to the flagyl. Pt was DC'ed with a PICC line so that she may return home and receive a total of 10 days I.V ABx treatment. Date of Discharge: 05/19/18 Minutes to complete discharge: 35 Discharge Summary Reason For Visit: HYPERGLYCEMIA,ABDOMINAL PAIN,DEHYDRATION,HYPOKALEM Current Active Problems Abdominal pain (Acute) Dehydration (Acute) Diabetes (Acute) Diverticulitis (Acute) Gram-negative bacteremia (Acute) Hyperglycemia (Acute) Hypokalemia (Acute) Penicillin allergy (Acute) UTI (urinary tract infection) (Acute) Condition: Stable - Instructions Diet, Activity, Other Instructions: You presented to the hospital due to tachycardia(fast heart beat) and abdominal pain. You were found to have a urinary tract infection and inflammation of your colon called Diverticulitis, and infection of the blood. You will be sent home with a PICC line in your arm so that you may continue your antibiotics- Aztreonam. Please take these antibiotics for 5 more days. Please start the Flagyl tonight and then take THREE times per day until you finish the 16 tablets. Please return to the emergency department immediately if you begin to experience fevers/nausea, vomiting, chest pain, shortness of breath, or lightheadedness . Referrals: Bravo Berg MD [Staff Physician] - Disposition: VNS/HOME HEALTH CARE - Home Medications Comprehensive Discharge Medication List: Ambulatory Orders Aspirin [ASA -] 81 mg PO DAILY 05/14/18 Enalapril Maleate [Vasotec -] 2.5 mg PO DAILY 05/14/18 Insulin Detemir [Levemir Flextouch] 26 unit SQ HS 05/14/18 Insulin Lispro [Humalog] 6 unit SQ TID 05/14/18 Pregabalin [Lyrica -] 200 mg PO HS 05/14/18 Simvastatin [Zocor] 80 mg PO HS 05/14/18 Diclofenac Sodium 75 mg PO DAILY 05/15/18 Nortriptyline HCl [Pamelor -] 10 mg PO DAILY 05/15/18 Aztreonam [Azactam (Restricted To Id) -] 1 gm IVPB Q8H-IV vial 05/19/18 metroNIDAZOLE [Flagyl -] 500 mg PO TID #16 tablet 05/19/18 This patient is new to me today: No Emergency Visit: Yes ED Registration Date: 05/14/18 Care time: The patient presented to the Emergency Department on the above date and was hospitalized for further evaluation of their emergent condition. Critical Care patient: No - Discharge Referral Referred to [facility] Med [facility] No
--- NOTE | 2018-05-19 14:47 | PN ---
Progress Note, Physician History of Present Illness: NO C/O ABDOMINAL PAIN TOLERATING DIET, ANTIBIOTIC REPORTS NORMAL BM AFEBRILE WBC WNL - Current Medication List Current Medications: Active Medications Acetaminophen (Tylenol -) 650 mg PO Q6H PRN PRN Reason: Fever Or Pain Level 1-5 Last Admin: 05/18/18 20:04 Dose: 650 mg Al Hydroxide/Mg Hydroxide (Mylanta Oral Suspension -) 30 ml PO Q6H PRN PRN Reason: DYSPEPSIA Last Admin: 05/16/18 10:03 Dose: 30 ml Amitriptyline HCl (Elavil -) 10 mg PO DAILY [facility] Last Admin: 05/19/18 10:09 Dose: 10 mg Aspirin (Asa -) 81 mg PO DAILY [facility] Last Admin: 05/19/18 10:09 Dose: 81 mg Atorvastatin Calcium (Lipitor -) 40 mg PO HS [facility] Last Admin: 05/18/18 21:18 Dose: 40 mg Enalapril Maleate (Vasotec -) 2.5 mg PO DAILY [facility] Last Admin: 05/19/18 10:09 Dose: 2.5 mg Enoxaparin Sodium (Lovenox -) 40 mg SQ DAILY [facility] Last Admin: 05/19/18 10:10 Dose: Not Given Aztreonam 1 gm/ Dextrose 50 mls @ 100 mls/hr IVPB Q8H-IV [facility]; Protocol Last Admin: 05/19/18 10:09 Dose: 100 mls/hr Insulin Aspart (Novolog Vial Sliding Scale -) 1 vial SQ ACHS [facility]; Protocol Last Admin: 05/19/18 12:13 Dose: 3 units Insulin Detemir (Levemir Vial) 26 units SQ AM [facility] Last Admin: 05/19/18 06:04 Dose: 26 units Metronidazole (Flagyl -) 500 mg PO TID [facility] Last Admin: 05/19/18 14:06 Dose: 500 mg Pregabalin (Lyrica -) 200 mg PO HS [facility] Last Admin: 05/18/18 21:18 Dose: 200 mg - Objective Vital Signs: Vital Signs Temperature 98.1 F 05/19/18 06:00 Pulse Rate 94 H 05/19/18 06:00 Respiratory Rate 18 05/19/18 06:00 Blood Pressure 109/62 05/19/18 06:00 O2 Sat by Pulse Oximetry (%) 98 05/18/18 21:00 Constitutional: Yes: No Distress Cardiovascular: Yes: Regular Rate and Rhythm, S1, S2 Respiratory: Yes: CTA Bilaterally Gastrointestinal: Yes: Normal Bowel Sounds, Soft. No: Tenderness Edema: No Labs: CBC, BMP 05/19/18 05:30 05/19/18 06:00 Assessment/Plan ACUTE DIVERTICULITIS- IMPROVED PCN ALLERGY TO COMPLETE 10D COURSE AZTREONAM OUTPATIENT
[2018-05-19 15:10] VITALS: BP 132/79; PULSE 96; TEMP 97.5
--- NOTE | 2018-05-19 16:25 | PN ---
Teaching Attending Note Name of Resident: Grayson De La Torre ATTENDING PHYSICIAN STATEMENT I saw and evaluated the patient. I reviewed the resident's note and discussed the case with the resident. I agree with the resident's findings and plan as documented. SUBJECTIVE: Patient is feeling better with no acute distress, no fever or chills. OBJECTIVE: Vital Signs Temperature 97.5 F L 05/19/18 14:00 Pulse Rate 96 H 05/19/18 14:00 Respiratory Rate 18 05/19/18 14:00 Blood Pressure 132/79 05/19/18 14:00 O2 Sat by Pulse Oximetry (%) 98 05/19/18 09:00 GENERAL: NAD, awake, alert, and fully oriented, diaphoretic HEENT: NC/AT, EOMi, [place], dry mucosa, NECK: No JVD LUNGS: CTA bilaterally anteriorly. No wheezes, and no crackles. HEART: tachycardic , normal S1 and S2 without murmur appreciated ABDOMEN: Soft, nondistended, normoactive BS, no guarding ,ND. MUSCULOSKELETAL: No CVA tenderness. EXTREMITIES: 2+ DP pulses, warm, well-perfused. . No edema. NEUROLOGICAL: CN 2-12 grossly intact PSYCHIATRIC: wants to go home. SKIN: Warm, dry, no rashes noted CBCD WBC 13.2 K/mm3 (4.0-10.0) H 05/19/18 05:30 RBC 3.47 M/mm3 (3.60-5.2) L 05/19/18 05:30 Hgb 10.5 GM/dL (10.7-15.3) L 05/19/18 05:30 Hct 31.5 % (32.4-45.2) L 05/19/18 05:30 MCV 90.6 fl (80-96) 05/19/18 05:30 MCHC 33.5 g/dl (32.0-36.0) 05/19/18 05:30 RDW 16.1 % (11.6-15.6) H 05/19/18 05:30 Plt Count 564 K/MM3 (134-434) H 05/19/18 05:30 MPV 8.0 fl (7.5-11.1) 05/19/18 05:30 CMP Sodium 141 mmol/L (136-145) 05/19/18 06:00 Potassium 3.7 mmol/L (3.5-5.1) 05/19/18 06:00 Chloride 108 mmol/L (98-107) H 05/19/18 06:00 Carbon Dioxide 25 mmol/L (21-32) 05/19/18 06:00 Anion Gap 9 MMOL/L (8-16) 05/19/18 06:00 BUN 7 mg/dL (7-18) 05/19/18 06:00 Creatinine 0.7 mg/dL (0.55-1.3) 05/19/18 06:00 Creat Clearance w eGFR 91.33 (>60) 05/19/18 06:00 Random Glucose 206 mg/dL (74-106) H 05/19/18 06:00 Calcium 8.3 mg/dL (8.5-10.1) L 05/19/18 06:00 Total Bilirubin 0.3 mg/dL (0.2-1) 05/18/18 06:00 AST 7 U/L (15-37) L 05/18/18 06:00 ALT 9 U/L (13-61) L 05/18/18 06:00 Alkaline Phosphatase 148 U/L (45-117) H 05/18/18 06:00 Total Protein 6.0 g/dl (6.4-8.2) L 05/18/18 06:00 Albumin 2.0 g/dl (3.4-5.0) L 05/18/18 06:00 CARDIAC ENZYMES Creatine Kinase 35 U/L (26-192) 05/14/18 14:40 Troponin I < 0.02 ng/ml (0.00-0.05) 05/14/18 14:40 Current Medications Generic Name Dose Route Start Last Admin Trade Name Freq PRN Reason Stop Dose Admin Acetaminophen 650 mg 05/17/18 01:01 05/18/18 20:04 Tylenol - PO 650 mg Q6H PRN Administration Fever Or Pain Level 1-5 Al Hydroxide/Mg Hydroxide 30 ml 05/16/18 08:33 05/16/18 10:03 Mylanta Oral Suspension - PO 30 ml Q6H PRN Administration DYSPEPSIA Amitriptyline HCl 10 mg 05/15/18 10:00 05/19/18 10:09 Elavil - PO 10 mg DAILY [facility] Administration Aspirin 81 mg 05/15/18 10:00 05/19/18 10:09 Asa - PO 81 mg DAILY [facility] Administration Atorvastatin Calcium 40 mg 05/14/18 22:00 05/18/18 21:18 Lipitor - PO 40 mg HS [facility] Administration Enalapril Maleate 2.5 mg 05/15/18 10:00 05/19/18 10:09 Vasotec - PO 2.5 mg DAILY [facility] Administration Enoxaparin Sodium 40 mg 05/18/18 18:15 05/19/18 10:10 Lovenox - SQ Not Given DAILY [facility] Aztreonam 1 gm/ Dextrose 50 mls @ 100 mls/hr 05/17/18 18:00 05/19/18 10:09 IVPB 100 mls/hr Q8H-IV [facility] Administration Protocol Insulin Aspart 1 vial 05/14/18 22:00 05/19/18 12:13 Novolog Vial Sliding Scale - SQ 3 units ACHS [facility] Administration Protocol Insulin Detemir 26 units 05/17/18 07:00 05/19/18 06:04 Levemir Vial SQ 26 units AM [facility] Administration Metronidazole 500 mg 05/17/18 22:00 05/19/18 14:06 Flagyl - PO 500 mg TID [facility] Administration Pregabalin 200 mg 05/15/18 22:00 05/18/18 21:18 Lyrica - PO 200 mg HS [facility] Administration Home Medications Medication Instructions Recorded Aspirin [ASA -] 81 mg PO DAILY 05/14/18 Enalapril Maleate [Vasotec -] 2.5 mg PO DAILY 05/14/18 Insulin Detemir [Levemir Flextouch] 26 unit SQ HS 05/14/18 Insulin Lispro [Humalog] 6 unit SQ TID 05/14/18 Pregabalin [Lyrica -] 200 mg PO HS 05/14/18 Simvastatin [Zocor] 80 mg PO HS 05/14/18 Diclofenac Sodium 75 mg PO DAILY 05/15/18 Nortriptyline HCl [Pamelor -] 10 mg PO DAILY 05/15/18 Aztreonam [Azactam (Restricted To 1 gm IVPB Q8H-IV vial 05/19/18 Id) -] metroNIDAZOLE [Flagyl -] 500 mg PO TID #16 tablet 05/19/18 Microbiology 05/16/18 12:08 Blood - Peripheral Venous Blood Culture - Preliminary NO GROWTH OBTAINED AFTER 72 HOURS, INCUBATION TO CONTINUE FOR 2 DAYS. 05/16/18 11:48 Blood - Peripheral Venous Blood Culture - Preliminary NO GROWTH OBTAINED AFTER 72 HOURS, INCUBATION TO CONTINUE FOR 2 DAYS. 05/14/18 19:31 Blood - Peripheral Venous Blood Culture - Preliminary NO GROWTH OBTAINED AFTER 96 HOURS, INCUBATION TO CONTINUE FOR 1 DAYS. 05/14/18 19:31 Blood - Peripheral Venous Blood Culture - Final Escherichia Coli 05/14/18 14:20 Urine - Urine Clean Catch Urine Culture - Final Escherichia Coli Proteus Mirabilis Assessment and plan: Patient is a 43yo F with PMHx of IDDM, HTN, chronic back pain, who presents today from Dr. Aleman's office for having tachycardia of 130bpm. was send to ED. for further care. # Gram negative bacteremia: On Azactam IV day 07/11 , will get a picc line and continue total of 10 days at home, and po flagyl x 5 more days as well, since allergic to PCN gets anaphelaxis. Discussed with will follow the patient as an outpatient , cbc, cmp post iv infusion. # s/p Sepsis due to UTI, IVF continue, # Acute UTI continue with IV azactam and po Flagyl , Patient is allergic to Penicillin # Hx of intubation due to hypoglycemic coma # s/p Hyperglycemia continue her levemir and home meds # Acute hyponatremia/psuedohyponatremia resolved #Acute hypokalemia continue to replete as needed # Escar on Left lower extremity heel ;doesn't look infected. [facility] the infusion center, picc line and picc line care.
[2018-05-21 10:35] VITALS: BMI 25.6
== END 2018-05-19 17:58 | disposition home health service (06) | DRG 720 ==
LOC: JER 13:47 → JERBED 16:58 → OBSVTOIN 17:30 → J8W 20:54
PROVIDERS: ADMIT Internal Medicine; ATTEND Internal Medicine
PROC: 02HV33Z Insertion of Infusion Device into Superior Vena Cava, Percutaneous Approach (ICD-10-PCS; principal; 2018-05-19)
PROC: B548ZZA Ultrasonography of Superior Vena Cava, Guidance (ICD-10-PCS; 2018-05-19)
DX: A41.51 Sepsis due to Escherichia coli [E. coli] (principal); E11.65 Type 2 diabetes mellitus with hyperglycemia; E87.1 Hypo-osmolality and hyponatremia; E87.8 Other disorders of electrolyte and fluid balance, not elsewhere classified; E11.40 Type 2 diabetes mellitus with diabetic neuropathy, unspecified; K57.32 Diverticulitis of large intestine without perforation or abscess without bleeding; N39.0 Urinary tract infection, site not specified; Z88.0 Allergy status to penicillin; I10 Essential (primary) hypertension; E78.5 Hyperlipidemia, unspecified; E87.6 Hypokalemia; E86.0 Dehydration; R00.0 Tachycardia, unspecified; K76.0 Fatty (change of) liver, not elsewhere classified; Z79.4 Long term (current) use of insulin; M54.5 Low back pain
CPT/HCPCS: 36415; 36569; 71045-TC-FY; 74176-TC; 76000-TC-FY; 76705-TC; 76937-TC; 80048; 80053; 81003; 81015; 82009; 82550; 82803; 82962; 83690; 83735; 84100; 84439; 84443; 84484; 84703; 85025; 85027; 87040; 87086; 87186; 93005; 93010; 99285-25; G0378; J0131; J7030

== ENCOUNTER 2018-09-23 08:08 | Inpatient (IN) | payer OTHER ==
[2018-09-23 09:06] VITALS: BMI 25.6
[2018-09-23 11:34] LABS: BASO % 0.5 % (0-2.0); EOS % 0.4 % (0-4.5); HEMATOCRIT 43.2 % (32.4-45.2); HEMOGLOBIN 14.3 GM/dL (10.7-15.3); LYMPH % 33.6 % (8-40); MCH 30.3 pg (25.7-33.7); MEAN CELL VOLUME 91.7 fl (80-96); MEAN PLT VOLUME 8.6 fl (7.5-11.1); MONO % 6.1 % (3.8-10.2); NEUT % 59.4 % (42.8-82.8); PLATELET COUNT 420 K/MM3 (134-434); RBC 4.71 M/mm3 (3.60-5.2); RDW 13.8 % (11.6-15.6); WHITE BLOOD COUNT 11.5 K/mm3 (4.0-10.0)
[2018-09-23 11:42] LABS: ALBUMIN 3.5 g/dl (3.4-5.0); BILIRUBIN,TOTAL 1.1 mg/dL (0.2-1); BLOOD UREA NITROGEN 16.9 mg/dL (7-18); CALCIUM 9.4 mg/dL (8.5-10.1); CREATININE 0.6 mg/dL (0.55-1.3); POTASSIUM 4.1 mmol/L (3.5-5.1); TOT PROT 7.2 g/dl (6.4-8.2)
--- NOTE | 2018-09-23 12:13 | HP ---
CHIEF COMPLAINT:intestinal obstruction PCP: Dr. Estrada GI: Dr. Aleman HISTORY OF PRESENT ILLNESS: Patient is a 43 year old female with past medical history of IDDM, fatty liver, anxiety, HLD, HTN, Insomnia, Depression, Spondylosis, Fibromyalgia, Chronic back pain, Diverticulitis (05/20), after a colonoscopy finding of non- traversable stricture in the sigmoid colon. Patient reported experiencing intermittent abdominal bloating that started about a year ago. No nausea, vomiting, or changes in bowel movement. Patient is unaware what makes the bloating better or worse. Four months prior, patient was admitted for abdominal pain and tachycardia. Patient was found to have a UTI and CT scan at that time showed diverticulitis. Patient was treated with IV antibiotics. She was discharged with instructions to follow up with GI. Today, patient underwent colonoscopy with Dr. Aleman, and findings revealed a non-traversable stricture in the sigmoid colon. Patient was subsequently admitted for further work-up. Patient denies fever, chills, headache, dizziness, nausea, vomiting, chest pain, palpitations, SOB, abdominal pain, diarrhea, constipation, urinary symptoms. Colonoscopy done in 2015, was reported to be normal. Recent Travel: denies PAST MEDICAL HISTORY: IDDM fatty liver anxiety HLD HTN Insomnia Depression Spondylosis Fibromyalgia Chronic back pain Diverticulitis PAST SURGICAL HISTORY: none Social History: Smoking:previous smoker, 2ppd, quit 4 years ago Alcohol:occasional Drugs: denies Family History: Mother - DM, heart disease Father - stroke Sister - DM Allergies onion Allergy (Intermediate, Verified 05/18/18 10:06) Difficulty Breathing Fish Containing Products Allergy (Verified 10/28/17 15:35) Penicillins Allergy (Verified 10/28/17 12:27) HOME MEDICATIONS: Home Medications Medication Instructions Recorded Aspirin [ASA -] 81 mg PO DAILY 05/14/18 Enalapril Maleate [Vasotec -] 2.5 mg PO DAILY 05/14/18 Insulin Detemir [Levemir Flextouch] 26 unit SQ HS 05/14/18 Insulin Lispro [Humalog] 6 unit SQ TID 05/14/18 Pregabalin [Lyrica -] 200 mg PO HS 05/14/18 Simvastatin [Zocor] 80 mg PO HS 05/14/18 Diclofenac Sodium 75 mg PO DAILY 05/15/18 Nortriptyline HCl [Pamelor -] 10 mg PO DAILY 05/15/18 Cyclobenzaprine HCl 10 mg PO DAILY 09/22/18 Fluticasone/Salmeterol [Advair 1 puff PO PRN PRN 09/22/18 250-50 Diskus] Loratadine 1 tab PO DAILY 09/22/18 Pantoprazole Sodium [Protonix -] 20 mg PO DAILY 09/22/18 REVIEW OF SYSTEMS CONSTITUTIONAL: Absent: fever, chills, diaphoresis, generalized weakness, malaise, loss of appetite, weight change HEENT: Absent: rhinorrhea, nasal congestion, throat pain, throat swelling, difficulty swallowing, mouth swelling, ear pain, eye pain, visual changes CARDIOVASCULAR: Absent: chest pain, syncope, palpitations, irregular heart rate, lightheadedness , peripheral edema RESPIRATORY: Absent: cough, shortness of breath, dyspnea with exertion, orthopnea, wheezing, stridor, hemoptysis GASTROINTESTINAL: Absent: abdominal pain, abdominal distension, nausea, vomiting, diarrhea, constipation, melena, hematochezia GENITOURINARY: Absent: dysuria, frequency, urgency, hesitancy, hematuria, flank pain, genital pain MUSCULOSKELETAL: Absent: myalgia, arthralgia, joint swelling, back pain, neck pain SKIN: Absent: rash, itching, pallor HEMATOLOGIC/IMMUNOLOGIC: Absent: easy bleeding, easy bruising, lymphadenopathy, frequent infections ENDOCRINE: Absent: unexplained weight gain, unexplained weight loss, heat intolerance, cold intolerance NEUROLOGIC: Absent: headache, focal weakness or paresthesias, dizziness, unsteady gait, seizure, mental status changes, bladder or bowel incontinence PSYCHIATRIC: Absent: anxiety, depression, suicidal or homicidal ideation, hallucinations. PHYSICAL EXAMINATION Vital Signs - 24 hr 09/23/18 09/23/18 09/23/18 08:59 09:55 10:10 Temperature 99.9 F H 98.4 F Pulse Rate 94 H 83 80 Respiratory 18 24 H 18 Rate Blood Pressure 125/79 91/69 112/61 O2 Sat by Pulse 96 100 100 Oximetry (%) 09/23/18 10:25 Temperature Pulse Rate 84 Respiratory 12 Rate Blood Pressure 126/70 O2 Sat by Pulse 100 Oximetry (%) GENERAL: Awake, alert, and fully oriented, in no acute distress. EYES: PERRLA, sclera anicteric, conjunctiva clear. EARS, NOSE, THROAT: Moist mucous membranes. NECK: Normal range of motion, supple. LUNGS: Breath sounds equal, clear to auscultation bilaterally. HEART: Regular rate and rhythm, normal S1 and S2 without murmur, rub or gallop. ABDOMEN: Soft, nontender, not distended, normoactive bowel sounds. MUSCULOSKELETAL: Normal range of motion at all joints. UPPER EXTREMITIES: 2+ pulses, warm, well-perfused.No peripheral edema. LOWER EXTREMITIES: 2+ pulses, warm, well-perfused. No peripheral edema. NEUROLOGICAL: Cranial nerves II-XII grossly intact. Normal speech. Normal gait. PSYCHIATRIC: Cooperative. Good eye contact. Appropriate mood and affect. SKIN: Warm, dry, normal turgor, no rashes or lesions noted. Laboratory Results - last 24 hr 09/23/18 08:12 Urine HCG, Qual Negative ASSESSMENT/PLAN: Patient is a 43 year old female with past medical history of IDDM, fatty liver, anxiety, HLD, HTN, Insomnia, Depression, Spondylosis, Fibromyalgia, Chronic back pain, Diverticulitis (05/20), after a colonoscopy finding of non- traversable stricture in the sigmoid colon. #Sigmoid colon stricture -s/p Colonoscopy findings: non-traversable stricture in the sigmoid colon. Small internal hemorrhoids. -GI (Dr. Aleman) consulted. Recommendations appreciated. -CT scan with PO/IV contrast to assess colon proximal to the colon -pending results, possible transfer to [facility] for further evaluation -NPO for now #IDDM -On Insulin Levemir 30 units HS and Insulin Novolog 6units TID at home -Will implement Insulin sliding scale for now while patient on NPO -BGM q6h #HLD -On simvastatin 80mg HS #HTN -BP wnl -hold meds for now while on NPO -continue to monitor BP #FEN -IV NS @83cc/hr -Electrolytes wnl, routine bmp monitoring -NPO #Prophylaxis -Lovenox 40mg sq daily #Disposition -full code -admit to med surg Visit type - Emergency Visit Emergency Visit: Yes ED Registration Date: 09/23/18 Care time: The patient presented to the Emergency Department on the above date and was hospitalized for further evaluation of their emergent condition. - New Patient This patient is new to me today: Yes Date on this admission: 09/24/18 - Critical Care Critical Care patient: No ATTENDING PHYSICIAN STATEMENT I saw and evaluated the patient. I reviewed the resident's note and discussed the case with the resident. I agree with the resident's findings and plan as documented. SUBJECTIVE: OBJECTIVE: ASSESSMENT AND PLAN:
[2018-09-23] MEDS: INSULIN SLIDING SCALE (NOVOLOG) 1 VIAL SQ SCH ×3 (13:07→23:13)
[2018-09-23] MEDS: SODIUM CHLORIDE 1,000 ML IV SCH (13:09)
--- NOTE | 2018-09-23 13:38 | EKG ---
Test Reason : Blood Pressure : / mmHG Vent. Rate : 087 BPM Atrial Rate : 087 BPM P-R Int : 122 ms QRS Dur : 088 ms QT Int : 396 ms P-R-T Axes : 047 032 051 degrees QTc Int : 476 ms NORMAL SINUS RHYTHM NORMAL ECG WHEN COMPARED WITH ECG OF 14-MAY-2018 14:55, NO SIGNIFICANT CHANGE WAS FOUND Confirmed by Satya Varela MD ([id number]) on 09/23/2018 1:38:23 PM Referred By: Mg Aleman Confirmed By:Satya Varela MD
--- NOTE | 2018-09-23 17:06 | PN ---
Progress Note (short form) - Note Progress Note: Please see recent Office note and initial office consult placed in physical chart 43F who had colonoscopy today for follow-up of a 05/20 episode of diverticulitis. Was admitted at [facility] at that time. Noted to have tight stricture in the sigmoid @ 40cm. Asymptomatic overall prior to procedure. Had normal colonoscopy [address] Meraz [address] scan performed to evaluate further
--- NOTE | 2018-09-23 17:44 | PN ---
Teaching Attending Note Name of Resident: Gia Shafer ATTENDING PHYSICIAN STATEMENT I saw and evaluated the patient. I reviewed the resident's note and discussed the case with the resident. I agree with the resident's findings and plan as documented. SUBJECTIVE: Patient is a 43 year old female with PMHx of IDDM, fatty liver, anxiety, HLD, HTN, Insomnia, Depression, Spondylosis, Fibromyalgia, Chronic back pain, Diverticulitis (05/20), came in to endocopy suite to have a colonoscopy done: and was found to have non-traversable stricture in the sigmoid colon. Patient had a colonoscopy done in 2015, was reported to be normal. Denies having any symptoms. Temperature 98.4 F 09/23/18 09:55 Pulse Rate 84 09/23/18 15:00 Respiratory Rate 12 09/23/18 15:00 Blood Pressure 126/70 09/23/18 15:00 O2 Sat by Pulse Oximetry (%) 100 09/23/18 10:25 GENERAL: The patient is awake, alert, and fully oriented, in no acute distress. HEAD: Normal with no signs of trauma. EYES: PERRL, extraocular movements intact, sclera anicteric, conjunctiva clear. ENT: Ears normal, oropharynx clear without exudates, moist mucous membranes. NECK: Trachea midline, full range of motion, supple. LUNGS: Breath sounds equal, clear to auscultation bilaterally, no wheezes, no crackles, no accessory muscle use. HEART: Regular rate and rhythm, S1, S2 without murmur, rub or gallop. ABDOMEN: Soft, nontender, nondistended, normoactive bowel sounds, no guarding, no rebound, no hepatosplenomegaly, no masses. EXTREMITIES: 2+ pulses, warm, well-perfused, no edema. NEUROLOGICAL: Cranial nerves II through XII grossly intact. Normal speech, gait not observed. PSYCH: Normal mood, normal affect. SKIN: Warm, dry, normal turgor, no rashes or lesions noted CBCD WBC 11.5 K/mm3 (4.0-10.0) H 09/23/18 10:50 RBC 4.71 M/mm3 (3.60-5.2) 09/23/18 10:50 Hgb 14.3 GM/dL (10.7-15.3) 09/23/18 10:50 Hct 43.2 % (32.4-45.2) D 09/23/18 10:50 MCV 91.7 fl (80-96) 09/23/18 10:50 MCHC 33.0 g/dl (32.0-36.0) 09/23/18 10:50 RDW 13.8 % (11.6-15.6) D 09/23/18 10:50 Plt Count 420 K/MM3 (134-434) D 09/23/18 10:50 MPV 8.6 fl (7.5-11.1) 09/23/18 10:50 CMP Sodium 136 mmol/L (136-145) 09/23/18 10:10 Potassium 4.1 mmol/L (3.5-5.1) 09/23/18 10:10 Chloride 100 mmol/L (98-107) 09/23/18 10:10 Carbon Dioxide 29 mmol/L (21-32) 09/23/18 10:10 Anion Gap 7 MMOL/L (8-16) L 09/23/18 10:10 BUN 16.9 mg/dL (7-18) 09/23/18 10:10 Creatinine 0.6 mg/dL (0.55-1.3) 09/23/18 10:10 Random Glucose 255 mg/dL (74-106) H 09/23/18 10:10 Calcium 9.4 mg/dL (8.5-10.1) 09/23/18 10:10 Total Bilirubin 1.1 mg/dL (0.2-1) H 09/23/18 10:10 AST 15 U/L (15-37) 09/23/18 10:10 ALT 23 U/L (13-61) 09/23/18 10:10 Alkaline Phosphatase 145 U/L (45-117) H 09/23/18 10:10 Total Protein 7.2 g/dl (6.4-8.2) 09/23/18 10:10 Albumin 3.5 g/dl (3.4-5.0) 09/23/18 10:10 Current Medications Generic Name Dose Route Start Last Admin Trade Name Freq PRN Reason Stop Dose Admin Albuterol Sulfate 4 puff 09/23/18 18:00 Ventolin Hfa Inhaler - IH QID SHO Budesonide/Formoterol Fumarate 2 puff 09/23/18 22:00 Symbicort 80/4.5mcg - IH BID [facility] Cyclobenzaprine HCl 10 mg 09/24/18 10:00 Flexeril - PO DAILY [facility] Duloxetine HCl 60 mg 09/24/18 10:00 Cymbalta - PO DAILY [facility] Enalapril Maleate 2.5 mg 09/24/18 10:00 Vasotec - PO DAILY [facility] Enoxaparin Sodium 40 mg 09/24/18 10:00 Lovenox - SQ DAILY [facility] Sodium Chloride 1,000 mls @ 83 mls/hr 09/23/18 11:45 09/23/18 13:09 Normal Saline - IV 83 mls/hr ASDIR [facility] Administration Insulin Aspart 1 vial 09/23/18 12:00 09/23/18 13:07 Novolog Vial Sliding Scale - SQ 2 units Q6H [facility] Administration Protocol Nortriptyline HCl 10 mg 09/24/18 10:00 Pamelor - PO DAILY [facility] Pregabalin 200 mg 09/23/18 22:00 Lyrica - PO [facility] Home Medications Medication Instructions Recorded Aspirin [ASA -] 81 mg PO DAILY 05/14/18 Enalapril Maleate [Vasotec -] 2.5 mg PO DAILY 05/14/18 Pregabalin [Lyrica -] 200 mg PO HS 05/14/18 Nortriptyline HCl [Pamelor -] 10 mg PO DAILY 05/15/18 Cyclobenzaprine HCl 10 mg PO DAILY 09/22/18 Fluticasone/Salmeterol [Advair 1 puff PO PRN PRN 09/22/18 250-50 Diskus] Albuterol Sulfate Inhaler - 4 puff IH QID 09/23/18 [Ventolin HFA Inhaler -] Diclofenac Sodium [Diclofono] 1 applic TP DAILY 09/23/18 Duloxetine HCl 60 mg PO DAILY 09/23/18 Fluticasone Prop 0.05% Nasal 1 - 2 spray NS BID 09/23/18 [Flonase -] Fluticasone/Salmeterol [Advair 1 puff IH BID 09/23/18 250-50 Diskus] Insulin (LOG) Aspart [NovoLOG -] 4 units SQ QID 09/23/18 Insulin Glargine,Hum.rec.anlog 30 units SQ DAILY 09/23/18 [Basaglar Kwikpen U-100] Nabumetone [Relafen -] 500 mg PO BID 09/23/18 Sertraline HCl 25 mg PO DAILY 09/23/18 ASSESSMENT AND PLAN: Patient is a 43 year old female with past medical history of IDDM, fatty liver, anxiety, HLD, HTN, Insomnia, Depression, Spondylosis, Fibromyalgia, Chronic back pain, Diverticulitis (05/20), post colonoscopy , was found to have non- traversable stricture in the sigmoid colon by 09/23/2018 #Sigmoid colon stricture s/p Colonoscopy today: was found to have non- traversable stricture in the sigmoid colon. Small internal hemorrhoids. Patient is going to CT abdomen and pelvis for further evaluation. #IDDM: on Insulin Levemir 30 units HS and Insulin Novolog 6units TID at home,SS with coverage #HLD: on simvastatin 80mg HS #HTN: Hold meds for now while on NPO, continue to monitor BP #Prophylaxis: Lovenox 40mg sq daily As per Dr. Li's note: tight stricture in the sigmoid @ 40cm. Asymptomatic overall prior to procedure. Had normal colonoscopy [address] Meraz
[2018-09-23] MEDS ORDERED: ACETAMINOPHEN 1000 MG/100 ML VIAL (NON FORMULARY) IVPB PRN (17:50)
[2018-09-23] MEDS: ALBUTEROL SO4 8 GM HFA INHALER IH SCH ×2 (18:14→23:07)
[2018-09-23] MEDS ORDERED: DULoxetine HCL 60 MG CAPSULE.DR PO SCH (21:12)
[2018-09-23] MEDS ORDERED: SERTRALINE HCL 25 MG TABLET (FP) PO SCH (21:12)
[2018-09-23] MEDS ORDERED: CYCLOBENZAPRINE HCL 10 MG TABLET (FP) PO SCH (21:12)
[2018-09-23] MEDS ORDERED: PREGABALIN 100 MG CAPSULE PO SCH ×3 (21:12→22:00)
[2018-09-23] MEDS ORDERED: NORTRIPTYLINE HCL 10 MG CAPSULE PO SCH (21:12)
[2018-09-23] MEDS ORDERED: LORATADINE 10 MG TABLET PO SCH (22:00)
[2018-09-23] MEDS ORDERED: PT OWN MED DRAWER 7, Y5N ONE (23:01)
[2018-09-23] MEDS: BUDESONIDE/FORMETEROL FUMARATE 80/4.5 mcg INHALER IH SCH (23:03)
[2018-09-24] MEDS: INSULIN SLIDING SCALE (NOVOLOG) 1 VIAL SQ SCH ×2 (06:59→13:16)
[2018-09-24 08:50] LABS: ALBUMIN 3.1 g/dl (3.4-5.0); BILIRUBIN,TOTAL 0.7 mg/dL (0.2-1); BLOOD UREA NITROGEN 14.7 mg/dL (7-18); CALCIUM 8.8 mg/dL (8.5-10.1); CREATININE 0.6 mg/dL (0.55-1.3); MAGNESIUM 1.9 mg/dL (1.8-2.4); PHOSPHOROUS 4.4 mg/dL (2.5-4.9); POTASSIUM 4.2 mmol/L (3.5-5.1); TOT PROT 6.6 g/dl (6.4-8.2)
[2018-09-24 09:00] LABS: EOS % 0.6 % (0-4.5); HEMOGLOBIN 14.1 GM/dL (10.7-15.3); LYMPH % 45.4 % (8-40); MCH 30.8 pg (25.7-33.7); MCHC 33.5 g/dl (32.0-36.0); MEAN CELL VOLUME 92.1 fl (80-96); MEAN PLT VOLUME 8.5 fl (7.5-11.1); MONO % 6.8 % (3.8-10.2); NEUT % 46.2 % (42.8-82.8); PLATELET COUNT 376 K/MM3 (134-434); RBC 4.56 M/mm3 (3.60-5.2); RDW 13.9 % (11.6-15.6); WHITE BLOOD COUNT 8.4 K/mm3 (4.0-10.0)
[2018-09-24] MEDS ORDERED: SERTRALINE HCL 25 MG TABLET (FP) PO SCH (10:00)
[2018-09-24] MEDS ORDERED: ENALAPRIL MALEATE 2.5 MG TABLET (FP) PO SCH (10:00)
[2018-09-24] MEDS ORDERED: CYCLOBENZAPRINE HCL 10 MG TABLET (FP) PO SCH ×2 (10:00)
[2018-09-24] MEDS ORDERED: NORTRIPTYLINE HCL 10 MG CAPSULE PO SCH (10:00)
[2018-09-24] MEDS ORDERED: ENOXAPARIN NA (PORCINE) 40 MG/0.4 ML DISP.SYRIN SQ SCH (10:00)
[2018-09-24] MEDS ORDERED: DULoxetine HCL 60 MG CAPSULE.DR PO SCH ×2 (10:00)
[2018-09-24] MEDS: DULoxetine HCL 30 MG CAPSULE.DR PO SCH ×2 (11:29→11:57)
[2018-09-24] MEDS: BUDESONIDE/FORMETEROL FUMARATE 80/4.5 mcg INHALER IH SCH (11:32)
[2018-09-24] MEDS: SODIUM CHLORIDE 1,000 ML IV SCH (11:47)
[2018-09-24] MEDS: ALBUTEROL SO4 8 GM HFA INHALER IH SCH (13:24)
[2018-09-24] MEDS ORDERED: ACETAMINOPHEN 325 MG TABLET (FP) PO PRN (14:21)
--- NOTE | 2018-09-24 14:51 | PN.GI ---
GI Progress Note Subjective: Pt seen/examined at bedside, feels well, asking to eat. Denies abdominal pain, n /v. Moving bowels. - Objective Vital Signs: Vital Signs Temperature 98.1 F 09/24/18 06:00 Pulse Rate 80 09/24/18 06:00 Respiratory Rate 18 09/24/18 06:00 Blood Pressure 133/79 09/24/18 06:00 O2 Sat by Pulse Oximetry (%) 99 09/23/18 21:00 Constitutional: Well Nourished, No Distress, Calm Cardiovascular: Yes: WNL, Regular Rate and Rhythm Respiratory: Yes: WNL, CTA Bilaterally Gastrointestinal Inspection: Yes: WNL ...Palpate: Yes: Other (Abd soft, nt, nd) Labs: CBC, BMP 09/24/18 07:00 09/24/18 07:00 Problem List - Problems (1) Colonic stricture Assessment/Plan: 43F h/o diverticular disease with episode of diverticulitis in 05/2018 s/p colonoscopy yesterday by Dr. Li revealing a stricture at 40cm that could not be traversed with a pediatric colonoscope. Biopsies taken. Otherwise normal appearing mucosa. CT performed yesterday revealing luminal narrowing and concentric thickening at distal left colon/proximal sigmoid colon, no obvious adnexal or uterine lesions. Normal colonoscopy reported in 2016. Possibly post inflammatory, less likely malignancy however cannot exclude. Also unable to exclude external compression. Pt clinically doing well with no features of large bowel obstruction. -As was discussed with advanced endoscopist Dr. Cifuentes per Dr. Li, would consider repeat colonoscopy to re-evaluate the stricture -Would also recommend colorectal surgery consultation -Plan for transfer therefore to [facility] for further management -Recommend clear liquid diet for now -Follow up biopsy results Discussed with medicine resident and attending Code(s): K56.699 - OTHER INTESTNL OBST UNSP TO PARTIAL VERSUS COMPLETE OBST
[2018-09-24 16:56] VITALS: BP 133/78; PULSE 82; TEMP 98.8
[2018-09-24] MEDS ORDERED: ALBUTEROL SO4 8 GM HFA INHALER IH PRN (17:29)
--- NOTE | 2018-09-24 17:42 | PN ---
Teaching Attending Note Name of Resident: Ayse Jones ATTENDING PHYSICIAN STATEMENT I saw and evaluated the patient. I reviewed the resident's note and discussed the case with the resident. I agree with the resident's findings and plan as documented. SUBJECTIVE: patient refuses to give any history and became loud and aggravated as she was transferred yet MD left room as a meaningful conversation was not able to be held with patient ASSESSMENT AND PLAN: 1- stricture in sigmoid colon 2- DM. 3- HTN 4- HLP plan : - transfer to [facility]. patient was accepted after making phone calls - cont her chronic meds
--- NOTE | 2018-09-24 17:46 | PATH ---
Surgical Pathology Report Patient Name: JJ SNEED Med. Rec. #: [id number] /Age/Gender: 1975 (Age: 43) / F Account: [id number] Location: [facility] MED/SURG Taken: 09/23/2018 Received: 09/23/2018 Reported: 09/24/2018 Physicians: Truong Aleman D.O. Specimen(s) Received SIGMOID STRICTURE Clinical History Followup diverticulitis Postoperative diagnosis: Sigmoid stricture Final Diagnosis SIGMOID COLON, STRICTURE, BIOPSY: COLONIC MUCOSA WITH FOCAL CHRONIC ACTIVE COLITIS WITH ASSOCIATED ULCERATION AND ADJACENT LAMINA PROPRIA FIBROSIS. Comment: Findings are compatible with history of diverticulitis. Suggest clinical and endoscopic correlation. Electronically Signed Ayse Samaniego M.D. Gross Description Received in formalin, labeled "sigmoid stricture biopsy" are 2 ruiz, irregular portions of soft tissue averaging 0.3 cm. in greatest dimension. The specimens are submitted in toto in one cassette. /09/23/2018 [facility]09/23/2018
== END 2018-09-24 17:59 | disposition short-term general hospital (02) | DRG 247 ==
LOC: JASU-ENDO 08:08 → JSAMEDAYSX 10:43 → J8W 12:21
PROVIDERS: ADMIT Internal Medicine; ATTEND Internal Medicine
DX: K56.699 Other intestinal obstruction unspecified as to partial versus complete obstruction (principal); I10 Essential (primary) hypertension; K76.0 Fatty (change of) liver, not elsewhere classified; E11.9 Type 2 diabetes mellitus without complications; Z79.4 Long term (current) use of insulin; E78.5 Hyperlipidemia, unspecified; K57.30 Diverticulosis of large intestine without perforation or abscess without bleeding; F41.9 Anxiety disorder, unspecified; G47.00 Insomnia, unspecified; F32.9 Major depressive disorder, single episode, unspecified; M47.9 Spondylosis, unspecified; M79.7 Fibromyalgia; Z87.891 Personal history of nicotine dependence; M54.5 Low back pain; Z88.0 Allergy status to penicillin; K64.8 Other hemorrhoids
CPT/HCPCS: 36415; 74177-TC; 80053; 82962; 83735; 84100; 84703; 85025; 88305-TC; 93005; 93010; J0131; J7030

== ENCOUNTER 2019-04-09 10:59 | Day surgery (SDC) | payer OTHER ==
[2019-04-08 13:50] VITALS: BMI 26.5
[2019-04-09 12:32] VITALS: TEMP 98.8
[2019-04-09 13:11] VITALS: BP 105/65; PULSE 98
--- NOTE | 2019-04-10 16:09 | PATH ---
Surgical Pathology Report Patient Name: JJ SNEED [facility]. Rec. #: [id number] /Age/Gender: 1975 (Age: 44) / F Account: [id number] Location: [facility]-ENDOSCOPY Taken: 04/09/2019 Received: 04/09/2019 Reported: 04/10/2019 Physicians: Truong Aleman D.O. Specimen(s) Received ANASTOMOSIS RECTO SIGMOID Clinical History Followup diverticulitis Postoperative diagnosis: Rectosigmoid anastomosis Final Diagnosis ANASTOMOSIS RECTOSIGMOID, BIOPSY: BENIGN COLONIC MUCOSA WITH FOCAL MILD CHRONIC INFLAMMATION. NO ACUTE INFLAMMATION IDENTIFIED. Electronically Signed Cesar Jorge M.D. Gross Description Received in formalin, labeled "biopsy anastomosis rectosigmoid" is a ruiz, irregular portion of soft tissue measuring 0.5 cm. in greatest dimension. The specimen is submitted in toto in one cassette. /04/09/2019 [facility]/04/09/2019
== END 2019-04-09 13:11 | disposition home or self-care (01) ==
LOC: JASU-ENDO 10:59
PROVIDERS: ATTEND Internal Medicine Gastroenterology
PROC: 0DBN8ZX Excision of Sigmoid Colon, Via Natural or Artificial Opening Endoscopic, Diagnostic (ICD-10-PCS; principal; 2019-04-09 09:30)
DX: Z13.811 Encounter for screening for lower gastrointestinal disorder (principal); Z87.19 Personal history of other diseases of the digestive system; Z98.0 Intestinal bypass and anastomosis status; K64.8 Other hemorrhoids
CPT/HCPCS: 81025; 88305-TC

== ENCOUNTER 2020-10-04 04:54 | Day surgery (SDC) | payer OTHER ==
[2020-10-04 09:28] VITALS: BMI 28.0
[2020-10-04 09:55] VITALS: TEMP 97.5
[2020-10-04 10:51] VITALS: BP 109/75; PULSE 98
== END 2020-10-04 10:54 | disposition home or self-care (01) ==
LOC: JASU-ENDO 04:54
PROVIDERS: ATTEND Internal Medicine Gastroenterology
PROC: 0DB68ZX Excision of Stomach, Via Natural or Artificial Opening Endoscopic, Diagnostic (ICD-10-PCS; principal; 2020-10-04 09:45)
DX: K29.60 Other gastritis without bleeding (principal); E11.9 Type 2 diabetes mellitus without complications; Z79.4 Long term (current) use of insulin
CPT/HCPCS: 81025; 88305-TC